=== PATIENT | male | born 1935 | race Caucasian/White ===

== ENCOUNTER 2018-01-02 13:57 | Inpatient (IN) | payer MEDICARE, OTHER, MEDICAID ==
[~2018-01-02] VITALS: Ht 170.2 cm; Wt 92.5 kg
--- NOTE | ~2018-01-02 | EC ---
PATIENT:FORREST BROWN DATE OF SERVICE: 01/03/18 SEX: M MEDICAL RECORD: [id number] DATE OF : 37 LOCATION:D.MS [facility] AGE OF PATIENT: 82 ADMISSION DATE: 01/03/18 REFERRING PHYSICIAN: INTERPRETING PHYSICIAN: CYNTHIA THAPA MD ECHOCARDIOGRAM REPORT ECHO CHARGES 4 ECHO COMPLETE CLINICAL DIAGNOSIS: SOB ECHOCARDIOGRAPHIC MEASUREMENTS (adult normal given) AC root (d.<3.7cm) 2.6 cm LV Septum d (<1.2 cm> 1.5 cm Valve Excursion 0.9 cm LV Septum (systole) 1.7 cm Left Atria (s.<4.0cm> 3.5 cm LVPW d(<1.2cm) 1.6 cm RV (d.<2.3cm) 4.0 cm LVPW (sytole) 1.9 cm LV diastole(<5.6CM) 5.0 cm MV E-F(>70mm/sec) cm LV systole 3.3 cm LVOT Diameter 1.6 cm MV exc.(>10mm) 1.0 cm Est.ejection fraction (50-75%) % Pericardial Effusion N DOPPLER: LVIT cm/sec A 138 cm/sec E 116 cm/sec LA cm/sec RVSP 21 mmHg LVOT 122 cm/sec AOP1/2T m/s Asc. Ao 272 cm/sec RVOT 131 cm/sec RA cm/sec PA 196 cm/sec AV Gradient Peak 29.70mmHg AV Mean 16.17mmHg AV Area 1.0 cm MV Gradient Peak 13.79mmHg MV Mean 7.18 mmHg MV Area cm COMMENTS: Proposal Manager: 2 KERRI ARROYO Water Tester: 3 Dr. Santillan TAPE# PACS DATE OF SERVICE: 01/03/2018 Adequate 2D echo, color flow, spectral Doppler, and M-mode. LVH is present. LV internal dimensions are normal. Wall motion is normal. EF is greater than 55%. Prosthetic aortic valve was noted with elevated velocities of 30 mmHg. Left atrium is normal at 3.5 cm. Mitral valve shows no prolapse. Trace MR. Right-sided chamber grossly normal. Mild TR. TRANSINT:[id number] Voice Confirmation ID: [id number] DOCUMENT ID: [id number] ECHOCARDIOGRAM REPORT [id number] FORREST BROWN 01/11/2018 Edited to correct date of service, dmm. CYNTHIA THAPA MD at 1030 CC: [id number] DICTATION DATE: 01/04/18 1307 TACK PICKER: 01/04/18 1332 DIS IN 01/06/18 [place] [id number] [place] [id number]
[2018-01-02 14:51] LABS: BASOPHILS 0.2 % (0-2); EOSINOPHILS 1.6 % (0-7); HEMATOCRIT 41.3 % (42.0-54.0); IMMATURE GRANULOCYTES 0.2 % (0-5); LYMPHOCYTES 13.2 % (15-50); MCH 32.1 pg (26.0-34.0); MCHC 31.5 g/dL (31.0-37.0); MEAN PLATELET VOLUME 10.2 fL (7.4-10.4); MONOCYTES 6.9 % (2-11); NEUTROPHILS 77.9 % (40-80); PLATELET COUNT 158 10x3/uL (130-400); RBC 4.05 10x6/uL (4.20-6.10); RDW 15.2 % (11.5-14.5); WBC 9.5 10x3/uL (4.8-10.8)
[2018-01-02 15:07] LABS: APTT 30.9 SECONDS (22.8-39.4); INR 1.15 (0.85-1.17); PROTIME 14.3 SECONDS (11.6-15.0)
[2018-01-02 15:09] LABS: D-DIMER-QUANTITATIVE < 0.27 ug/mLFEU (0.20-0.54)
[2018-01-02 15:11] LABS: ALBUMIN 3.8 g/dL (3.4-5.0); ALKALINE PHOSPHATASE 121 U/L (46-116); ALT (SGPT) 73 U/L (10-68); BILIRUBIN - TOTAL 0.44 mg/dL (0.2-1.3); CALC OSMOLALITY 289 mosm/kg (275-300); CALCIUM 9.8 mg/dL (8.5-10.1); CARBON DIOXIDE 34.8 mmol/L (21.0-32.0); CHLORIDE - SERUM 101 mmol/L (98-107); CREATININE - SERUM 1.3 mg/dL (0.6-1.3); GLUCOSE 101 mg/dL (74-106); POTASSIUM - SERUM 4.3 mmol/L (3.5-5.1); PROTEIN - SERUM 8.4 g/dL (6.4-8.2); SODIUM 144 mmol/L (136-145); UREA NITROGEN 21 mg/dL (7-18); eGFR NON AFRICAN AMERICAN 56 mL/min (90-120)
[2018-01-02 15:19] LABS: CKMB 2.9 U/L (0.0-3.6); CREATINE KINASE 161 UL (21-232); PRO BNP 90 pg/mL (0-450)
[2018-01-02 15:20] LABS: TROPONIN-I < 0.017 ng/mL (0.000-0.060)
[2018-01-02] MEDS ORDERED: ACETAMINOPHEN325 MG PO (20:14)
[2018-01-02] MEDS ORDERED: PROAIR HFA8.5 GM INH (20:18)
[2018-01-02] MEDS ORDERED: ZYLOPRIM100 MG PO (20:18)
[2018-01-02] MEDS ORDERED: CORDARONE200 MG PO (20:19)
[2018-01-02] MEDS ORDERED: ELIQUIS5 MG PO (20:19)
[2018-01-02] MEDS ORDERED: CARVEDILOL (20:21)
[2018-01-02] MEDS ORDERED: PLAVIX75 MG PO (20:30)
[2018-01-02] MEDS ORDERED: FLUTICASONE PRO16 GM NASAL (20:32)
[2018-01-02] MEDS ORDERED: FERROUS SULFAT325 MG PO (20:32)
[2018-01-02] MEDS ORDERED: LASIX40 MG PO (20:34)
[2018-01-02] MEDS ORDERED: HYDROCODON-ACE1 EAC7 PO (20:35)
[2018-01-02] MEDS ORDERED: IPRAT-ALBUT 0.5-3 ML UPD (20:36)
[2018-01-02] MEDS ORDERED: PROTONIX40 MG PO (20:39)
[2018-01-02] MEDS ORDERED: PRAVACHOL40 MG PO (20:41)
[2018-01-02] MEDS ORDERED: K-DUR20 MEQ PO (20:41)
[2018-01-02] MEDS ORDERED: FLOMAX0.4 MG PO (20:42)
[2018-01-02] MEDS ORDERED: SYMBICORT 16010.2 GM INH (20:42)
[2018-01-03] VITALS (7 sets, daily range): BP systolic 130–178; BP diastolic 49–80; BMI 32.0
[2018-01-03 05:00] LABS: BASOPHILS 0.1 % (0-2); EOSINOPHILS 0 % (0-7); HEMATOCRIT 39.2 % (42.0-54.0); HEMOGLOBIN 12.3 g/dL (13.5-17.5); IMMATURE GRANULOCYTES 0.2 % (0-5); LYMPHOCYTES 9.1 % (15-50); MCH 31.7 pg (26.0-34.0); MCHC 31.4 g/dL (31.0-37.0); MEAN PLATELET VOLUME 9.8 fL (7.4-10.4); MONOCYTES 0.4 % (2-11); NEUTROPHILS 90.2 % (40-80); PLATELET COUNT 162 10x3/uL (130-400); RBC 3.88 10x6/uL (4.20-6.10); RDW 15.4 % (11.5-14.5); WBC 8.4 10x3/uL (4.8-10.8)
[2018-01-03 05:41] LABS: ALBUMIN 3.1 g/dL (3.4-5.0); ANION GAP 16.6 mmol/L (8-16); BILIRUBIN - TOTAL 0.3 mg/dL (0.2-1.3); CALCIUM 8.7 mg/dL (8.5-10.1); CARBON DIOXIDE 26.8 mmol/L (21.0-32.0); CREATININE - SERUM 1.6 mg/dL (0.6-1.3); POTASSIUM - SERUM 4.4 mmol/L (3.5-5.1); PROTEIN - SERUM 7.7 g/dL (6.4-8.2)
[2018-01-04 01:02] VITALS: BP 152/67
[2018-01-04 06:05] LABS: BASOPHILS 0 % (0-2); EOSINOPHILS 0 % (0-7); HEMATOCRIT 37.1 % (42.0-54.0); HEMOGLOBIN 11.7 g/dL (13.5-17.5); IMMATURE GRANULOCYTES 0.2 % (0-5); LYMPHOCYTES 5.9 % (15-50); MCH 31.5 pg (26.0-34.0); MCHC 31.5 g/dL (31.0-37.0); MEAN PLATELET VOLUME 10.2 fL (7.4-10.4); MONOCYTES 2.7 % (2-11); NEUTROPHILS 91.2 % (40-80); PLATELET COUNT 155 10x3/uL (130-400); RBC 3.71 10x6/uL (4.20-6.10); RDW 15.6 % (11.5-14.5)
[2018-01-04 06:09] VITALS: BP 133/69
[2018-01-04 06:09] LABS: WBC 13.1 10x3/uL (4.8-10.8)
[2018-01-04 06:27] LABS: ANION GAP 13.8 mmol/L (8-16); CALCIUM 8.6 mg/dL (8.5-10.1); CARBON DIOXIDE 28.1 mmol/L (21.0-32.0); CREATININE - SERUM 1.4 mg/dL (0.6-1.3); POTASSIUM - SERUM 4.9 mmol/L (3.5-5.1)
[2018-01-04 08:26] VITALS: BP 150/58
[2018-01-04 13:26] VITALS: Ht 170.2 cm; Wt 92.5 kg
[2018-01-04 13:42] VITALS: BP 137/50
[2018-01-04 16:40] VITALS: BP 144/57
[2018-01-04 23:40] VITALS: BP 148/58
[2018-01-05 05:22] LABS: BASOPHILS 0 % (0-2); EOSINOPHILS 0 % (0-7); HEMATOCRIT 35.1 % (42.0-54.0); HEMOGLOBIN 11.1 g/dL (13.5-17.5); IMMATURE GRANULOCYTES 0.3 % (0-5); LYMPHOCYTES 8.8 % (15-50); MCH 31.6 pg (26.0-34.0); MCHC 31.6 g/dL (31.0-37.0); MEAN PLATELET VOLUME 10.2 fL (7.4-10.4); MONOCYTES 7.4 % (2-11); NEUTROPHILS 83.5 % (40-80); PLATELET COUNT 148 10x3/uL (130-400); RBC 3.51 10x6/uL (4.20-6.10); RDW 15.8 % (11.5-14.5); WBC 10.7 10x3/uL (4.8-10.8)
[2018-01-05 05:46] LABS: ANION GAP 11.2 mmol/L (8-16); CALCIUM 8.3 mg/dL (8.5-10.1); CREATININE - SERUM 1.2 mg/dL (0.6-1.3); POTASSIUM - SERUM 4.2 mmol/L (3.5-5.1)
[2018-01-05 06:13] VITALS: BP 122/50
[2018-01-05 08:33] VITALS: BP 136/64
[2018-01-05 23:07] VITALS: BP 142/63
[2018-01-06 05:23] VITALS: BP 148/64
[2018-01-06 06:45] LABS: BASOPHILS 0 % (0-2); EOSINOPHILS 0 % (0-7); HEMATOCRIT 37.9 % (42.0-54.0); HEMOGLOBIN 11.9 g/dL (13.5-17.5); IMMATURE GRANULOCYTES 0.5 % (0-5); LYMPHOCYTES 10.5 % (15-50); MCH 31.6 pg (26.0-34.0); MCHC 31.4 g/dL (31.0-37.0); MCV 100.8 fL (80.0-100.0); MEAN PLATELET VOLUME 10.3 fL (7.4-10.4); MONOCYTES 5.6 % (2-11); NEUTROPHILS 83.4 % (40-80); PLATELET COUNT 144 10x3/uL (130-400); RBC 3.76 10x6/uL (4.20-6.10); RDW 15.8 % (11.5-14.5); WBC 8.4 10x3/uL (4.8-10.8)
[2018-01-06 07:02] LABS: ANION GAP 9.2 mmol/L (8-16); CALCIUM 9.3 mg/dL (8.5-10.1); CARBON DIOXIDE 33.3 mmol/L (21.0-32.0); CREATININE - SERUM 1.2 mg/dL (0.6-1.3); POTASSIUM - SERUM 4.5 mmol/L (3.5-5.1)
[2018-01-06 08:05] VITALS: BP 176/74
[2018-01-06] MEDS ORDERED: SINGULAIR10 MG PO (11:03)
[2018-01-06] MEDS ORDERED: MUCINEX DM ER1 EAC1 PO (11:03)
[2018-01-06] MEDS ORDERED: BENZONATATE200 MG PO (11:03)
[2018-01-06] MEDS ORDERED: DALIRESP500 MCG PO (11:03)
[2018-01-06] MEDS ORDERED: PULMICORT0.5 MG/21 UPD (11:03)
[2018-01-06] MEDS ORDERED: FLORAJEN3 CAPS460 MG PO (11:04)
[2018-01-06] MEDS ORDERED: ZITHROMAX TRI-500 MG PO (11:04)
[2018-01-06] MEDS ORDERED: PREDNISONE10 MG PO (11:05)
[2018-01-06] MEDS ORDERED: OMNICEF300 MG PO (11:05)
[2018-02-22 13:13] LABS: IMMUNOGLOBULIN A 1325; IMMUNOGLOBULIN G 516
[2018-02-22 13:14] LABS: IMMUNOGLOBULIN E 11
== END 2018-01-06 12:08 | disposition home or self-care (01) | DRG 193 ==
LOC: D.ER 13:57 → OBSVTIME 17:39 → D.MS 17:39 → D.SDCHOLD 01-04 11:55 → D.MS 01-06 12:08
PROVIDERS: Family Medicine; Internal Medicine Nephrology; Internal Medicine Pulmonary Disease
DX: J18.9 Pneumonia, unspecified organism (principal); J96.21 Acute and chronic respiratory failure with hypoxia; J96.22 Acute and chronic respiratory failure with hypercapnia; J44.0 Chronic obstructive pulmonary disease with (acute) lower respiratory infection; N17.9 Acute kidney failure, unspecified; J44.1 Chronic obstructive pulmonary disease with (acute) exacerbation; J20.9 Acute bronchitis, unspecified; G47.33 Obstructive sleep apnea (adult) (pediatric); M10.9 Gout, unspecified; K21.9 Gastro-esophageal reflux disease without esophagitis; I12.9 Hypertensive chronic kidney disease with stage 1 through stage 4 chronic kidney disease, or unspecified chronic kidney disease; N18.9 Chronic kidney disease, unspecified; Z99.81 Dependence on supplemental oxygen; I48.91 Unspecified atrial fibrillation; R13.11 Dysphagia, oral phase; Z87.891 Personal history of nicotine dependence; D75.89 Other specified diseases of blood and blood-forming organs

== ENCOUNTER 2019-09-15 17:48 | Inpatient (IN) | payer MEDICARE, OTHER ==
[~2019-09-15] VITALS: Ht 170.2 cm; Wt 83.0 kg
[~2019-09-15 17:48] MED LIST: ACETAMINOPHEN325 MG PO; BENZONATATE200 MG PO; CARVEDILOL; CORDARONE200 MG PO; DALIRESP500 MCG PO; ELIQUIS5 MG PO; FERROUS SULFAT325 MG PO; FLOMAX0.4 MG PO; FLORAJEN3 CAPS460 MG PO; FLUTICASONE PRO16 GM NASAL; HYDROCODON-ACE1 EAC7 PO; IPRAT-ALBUT 0.5-3 ML UPD; K-DUR20 MEQ PO; LASIX40 MG PO; MUCINEX DM ER1 EAC1 PO; OMNICEF300 MG PO; PLAVIX75 MG PO; PRAVACHOL40 MG PO; PREDNISONE10 MG PO; PROAIR HFA8.5 GM INH; PROTONIX40 MG PO; PULMICORT0.5 MG/21 UPD; SINGULAIR10 MG PO; SYMBICORT 16010.2 GM INH; ZITHROMAX TRI-500 MG PO; ZYLOPRIM100 MG PO
[2019-09-15 19:01] LABS: BASOPHILS 0.6 % (0-2); EOSINOPHILS 5.9 % (0-7); HEMATOCRIT 38.1 % (42.0-54.0); HEMOGLOBIN 11.7 g/dL (13.5-17.5); IMMATURE GRANULOCYTES 0.1 % (0-5); LYMPHOCYTES 19.8 % (15-50); MCH 30.5 pg (26.0-34.0); MCHC 30.7 g/dL (31.0-37.0); MCV 99.2 fL (80.0-100.0); MEAN PLATELET VOLUME 10.1 fL (7.4-10.4); MONOCYTES 7.5 % (2-11); NEUTROPHILS 66.1 % (40-80); PLATELET COUNT 166 10x3/uL (130-400); RBC 3.84 10x6/uL (4.20-6.10); RDW 17.1 % (11.5-14.5); WBC 7.2 10x3/uL (4.8-10.8)
[2019-09-15 19:03] LABS: CALC OSMOLALITY 289 mosm/kg (275-300); CALCIUM 9.2 mg/dL (8.5-10.1); CARBON DIOXIDE 32.9 mmol/L (21.0-32.0); CHLORIDE - SERUM 104 mmol/L (98-107); CREATININE - SERUM 1.5 mg/dL (0.6-1.3); GLUCOSE 122 mg/dL (74-106); POTASSIUM - SERUM 4.4 mmol/L (3.5-5.1); SODIUM 144 mmol/L (136-145); UREA NITROGEN 17 mg/dL (7-18); eGFR NON AFRICAN AMERICAN 47 mL/min (90-120)
[2019-09-15 19:04] LABS: INR 1.22 (0.85-1.17); PROTIME 14.9 SECONDS (11.6-15.0)
[2019-09-15 19:05] LABS: APTT 33.9 SECONDS (22.8-39.4)
--- NOTE | 2019-09-15 19:25 | NUR ---
ASSUMED CARE OF PATIENT, RESTING QUIETLY AT THIS TIME, DENIES PAIN AT THIS TIME, FAMILY AT BEDSIDE.
[2019-09-15 19:28] LABS: MAGNESIUM - SERUM 1.6 mg/dL (1.8-2.4)
[2019-09-15 19:29] VITALS: BP 112/48
[2019-09-15 19:29] LABS: ALKALINE PHOSPHATASE 124 U/L (46-116); ALT (SGPT) 26 U/L (10-68); BILIRUBIN - TOTAL 0.21 mg/dL (0.2-1.3); CKMB 1.8 U/L (0.0-3.6); CREATINE KINASE 142 UL (21-232); PROTEIN - SERUM 7.2 g/dL (6.4-8.2); TROPONIN-I 0.013 ng/mL (0.000-0.060)
[2019-09-15 20:30] VITALS: BP 129/52
--- NOTE | 2019-09-15 21:00 | NUR ---
PATIENT HAS INDWELLING BOWERS X 1 MONTH, CHANGED LEG BAG TO A REGULAR BAG, URINE IS CLEAR YELLOW.
[2019-09-15 21:21] LABS: CKMB 1.9 U/L (0.0-3.6); CREATINE KINASE 137 UL (21-232)
[2019-09-15 21:24] LABS: TROPONIN-I < 0.017 ng/mL (0.000-0.060)
--- NOTE | 2019-09-15 22:15 | NUR ---
PATIENT ARRIVED FROM ER VIA STRETCHER. PATIENT IS ALERT AND ORIENTED, TRANSFERED TO BED WITH MINIMIAL ASSISTANCE. PATIENT ON 2L NC. PATIENT HAS A CHRONIC BOWERS D/T PROSTATE ISSUES. NO S/S OF DISTRESS. NO C/O PAIN. CALL LIGHT WITHIN REACH. WILL CPOC.
[2019-09-15] MEDS ORDERED: COREG 3.1253.125 MG PO (22:25)
[2019-09-15] MEDS ORDERED: SYNTHROID50 MCG PO (22:37)
[2019-09-15] MEDS ORDERED: GLUCOPHAGE500 MG PO (22:38)
[2019-09-15] MEDS ORDERED: ZOFRAN4 MG PO (22:39)
[2019-09-15 22:55] LABS: APPEARANCE CLEAR (CLEAR); COLOR STRAW (YELLOW); SPECIFIC GRAVITY 1.015 (1.005-1.020)
[2019-09-15 22:56] LABS: BILIRUBIN NEGATIVE (NEGATIVE); GLUCOSE NEGATIVE (NEGATIVE); KETONE NEGATIVE (NEGATIVE); NITRITE NEGATIVE (NEGATIVE); PROTEIN NEGATIVE (NEGATIVE); UROBILINOGEN NORMAL (NORMAL)
[2019-09-15 23:00] LABS: BACTERIA FEW /hpf (NEGATIVE); EPITHELIAL CELLS NSEEN /hpf (0-5); RED CELLS - URINE 0-5 /hpf (0-5); WHITE CELLS - URINE 0-5 /hpf (NEGATIVE)
[2019-09-15 23:01] LABS: YEAST >1+ WITH HYPHAE /hpf (NONE SEEN)
[2019-09-15 23:08] VITALS: BP 120/50; BMI 31.4
[2019-09-16 01:56] LABS: BASOPHILS 0.6 % (0-2); EOSINOPHILS 6.2 % (0-7); HEMATOCRIT 35.3 % (42.0-54.0); HEMOGLOBIN 10.7 g/dL (13.5-17.5); IMMATURE GRANULOCYTES 0.3 % (0-5); LYMPHOCYTES 22.4 % (15-50); MCH 30.2 pg (26.0-34.0); MCHC 30.3 g/dL (31.0-37.0); MCV 99.7 fL (80.0-100.0); MEAN PLATELET VOLUME 9.8 fL (7.4-10.4); MONOCYTES 8.6 % (2-11); NEUTROPHILS 61.9 % (40-80); PLATELET COUNT 148 10x3/uL (130-400); RBC 3.54 10x6/uL (4.20-6.10); RDW 16.8 % (11.5-14.5)
--- NOTE | 2019-09-16 02:13 | NUR ---
PATIENT GIVEN MORPHINE FOR PAIN. CALL LIGHT WITHIN REACH. WILL CPOC.
[2019-09-16 02:18] LABS: ALBUMIN 2.7 g/dL (3.4-5.0); ALKALINE PHOSPHATASE 102 U/L (46-116); ALT (SGPT) 22 U/L (10-68); BILIRUBIN - TOTAL 0.19 mg/dL (0.2-1.3); CALC OSMOLALITY 286 mosm/kg (275-300); CALCIUM 8.7 mg/dL (8.5-10.1); CARBON DIOXIDE 34.2 mmol/L (21.0-32.0); CHLORIDE - SERUM 105 mmol/L (98-107); CKMB 1.6 U/L (0.0-3.6); CREATINE KINASE 111 UL (21-232); CREATININE - SERUM 1.5 mg/dL (0.6-1.3); GLUCOSE 125 mg/dL (74-106); MAGNESIUM - SERUM 1.6 mg/dL (1.8-2.4); PHOSPHOROUS 3.5 mg/dL (2.5-4.9); POTASSIUM - SERUM 4.2 mmol/L (3.5-5.1); PROTEIN - SERUM 6.2 g/dL (6.4-8.2); SODIUM 143 mmol/L (136-145); TROPONIN-I < 0.017 ng/mL (0.000-0.060); UREA NITROGEN 16 mg/dL (7-18); eGFR NON AFRICAN AMERICAN 47 mL/min (90-120)
[2019-09-16 02:18] LABS: THYROID STIMULATING HORMONE 2.44 uIU/mL (0.36-3.74)
--- NOTE | 2019-09-16 04:23 | NUR ---
PATIENT COMPLAINING OF PAIN. MORPHINE ORDERED Q 4H. MORHINE NOT AVAILABLE FOR ADMINISTERATION UNTIL 0600. PAGED LELAND URIAS COMPUTER FORENSICS EXAMINER. ORDERS GIVEN FOR FLEXERIL 10 MG TID AND MORPHINE 2MG Q4H PRN. ALSO AND US OF GALLBLADDER FOR RIGHT UPPER QUADRANT PAIN.
[2019-09-16 04:45] VITALS: BP 126/53
[2019-09-16 08:00] VITALS: BP 176/60
[2019-09-16 09:23] VITALS: Ht 170.2 cm; Wt 83.0 kg
--- NOTE | 2019-09-16 09:41 | CN ---
PATIENT NAME:FORREST BROWN MEDICAL RECORD: [id number] : 37 LOCATION:D. D.2116 ADMIT DATE: 09/15/19 ACCOUNT: [id number] CONSULTING PHYSICIAN: BETTYE JAIME MD REFERRING PHYSICIAN: ESTRELLA PAEZ MD DATE OF CONSULTATION: 09/16/2019 CARDIOLOGY CONSULTATION DIAGNOSES: 1. Chest pain, atypical. 2. Coronary artery disease. 3. Previous PTCA stent. 4. Atrial fibrillation, chronic. 5. Aortic valve replacement tissue prosthesis. 6. COPD. 7. Shortness of breath, dyspnea on exertion. 8. GERD. HISTORY OF PRESENT ILLNESS: Mr. Brown presents with shortness of breath, cough, acid reflux symptomatology, and abdominal pain. No real chest pain. The pain is on his upper quadrants of his abdomen. It is very sharp, going from one side to the other is definitely positional. He has no dull aching anginal pain, does have a history of stents. He does not remember the pain he had prior to the stenting procedures. EKG is with no ST-T abnormalities. His troponin is normal. PHYSICAL EXAMINATION: CONSTITUTIONAL/GENERAL APPEARANCE: Well nourished, well developed, appears stated age. EYES: Lids and conjunctivae noninjected. No discharge. No pallor. ENT: Lips within normal limit. No cyanosis. No pallor. NECK: Carotid arteries, bilateral normal upstroke. No bruits. No thrills. No jugular venous pressure or distention. CERVICAL LYMPH NODES: Nontender. Nonenlarged. THYROID: Not enlarged. No nodules. CARDIOVASCULAR: Heart is irregularly irregular. RESPIRATORY: Respiratory effort, unlabored. Normal curvature. No thoracic deformity. No chest wall tenderness. Percussion, resonant. Auscultation, clear. No wheezes, no rales, no rhonchi. ABDOMEN: Soft, nondistended, nontender. No abdominal pain, no vomiting and normal appetite. MUSCULOSKELETAL: No joint tenderness, normal gait, normal tone. SKIN: Warm and dry. OVERALL IMPRESSION: Chest pain. This is not cardiac in nature. He seems to be stable from the standpoint of ischemic heart disease. Heart rate is under good control in the 70s and systolic blood pressure is under good control in the 120s. We will get an echocardiogram to evaluate the valvular prosthesis. Otherwise, no other cardiac workup or treatment is necessary. TRANSINT:[id number] Voice Confirmation ID: [id number] DOCUMENT ID: [id number] CONSULT REPORT [id number] FORREST BROWN, BETTYE SIMPSON at 0941 CC: [id number] DICTATION DATE: 09/16/19921 PRODUCTION ILLUSTRATOR: 09/16/19 09 ADM IN [place] [id number] [place] [address]
[2019-09-16 10:09] LABS: CKMB 1.7 U/L (0.0-3.6); CREATINE KINASE 100 UL (21-232); TROPONIN-I < 0.017 ng/mL (0.000-0.060)
[2019-09-16 10:55] VITALS: BP 107/55
[2019-09-16 15:14] VITALS: BP 136/53
[2019-09-16 20:30] VITALS: BP 112/44
[2019-09-17 00:15] VITALS: BP 148/54
[2019-09-17 04:18] VITALS: BP 101/37
[2019-09-17 05:27] LABS: BASOPHILS 0.3 % (0-2); EOSINOPHILS 4.2 % (0-7); HEMATOCRIT 37.6 % (42.0-54.0); HEMOGLOBIN 11.3 g/dL (13.5-17.5); IMMATURE GRANULOCYTES 0.1 % (0-5); LYMPHOCYTES 17.9 % (15-50); MCH 30.5 pg (26.0-34.0); MCHC 30.1 g/dL (31.0-37.0); MCV 101.6 fL (80.0-100.0); MEAN PLATELET VOLUME 9.9 fL (7.4-10.4); MONOCYTES 7.4 % (2-11); NEUTROPHILS 70.1 % (40-80); PLATELET COUNT 154 10x3/uL (130-400); RDW 17.1 % (11.5-14.5); WBC 7.6 10x3/uL (4.8-10.8)
[2019-09-17 05:58] LABS: ANION GAP 8.4 mmol/L (8-16); CALCIUM 9.1 mg/dL (8.5-10.1); CARBON DIOXIDE 34.1 mmol/L (21.0-32.0); CREATININE - SERUM 1.3 mg/dL (0.6-1.3); MAGNESIUM - SERUM 1.8 mg/dL (1.8-2.4); POTASSIUM - SERUM 4.5 mmol/L (3.5-5.1)
--- NOTE | 2019-09-17 07:15 | NUR ---
RECEIVED PT IN BED EYES CLOSED RESP UNLABORED SKIN W/D NAD NOTED AT THIS TIME
[2019-09-17 09:10] VITALS: BP 109/40
[2019-09-17 12:00] VITALS: BP 121/49; BP 132/44
[2019-09-17 16:00] VITALS: BP 123/49
[2019-09-17 20:30] VITALS: BP 121/50
--- NOTE | 2019-09-17 20:33 | NUR ---
C/O GENERALIZED PAIN. DILAUDID GIVEN PER ORDERS.
--- NOTE | 2019-09-18 01:22 | NUR ---
C/O BACK PAIN AND REQUESTED PAIN MEDICATION. MED GIVEN PER ORDERS WITH SSTATED RELIEF.
--- NOTE | 2019-09-18 03:29 | NUR ---
REPOSITIONED. EASILY AROUSES WITH VERBAL STIMULI. RESTING BETTER TONIGHT.
[2019-09-18 05:28] LABS: BASOPHILS 0.3 % (0-2); EOSINOPHILS 4.9 % (0-7); HEMATOCRIT 35.7 % (42.0-54.0); HEMOGLOBIN 10.8 g/dL (13.5-17.5); IMMATURE GRANULOCYTES 0.3 % (0-5); LYMPHOCYTES 24.4 % (15-50); MCH 30.9 pg (26.0-34.0); MCHC 30.3 g/dL (31.0-37.0); MEAN PLATELET VOLUME 10.5 fL (7.4-10.4); MONOCYTES 7.8 % (2-11); NEUTROPHILS 62.3 % (40-80); PLATELET COUNT 146 10x3/uL (130-400); RDW 17.2 % (11.5-14.5); WBC 6.9 10x3/uL (4.8-10.8)
[2019-09-18 05:52] LABS: ANION GAP 5.3 mmol/L (8-16); CARBON DIOXIDE 36.9 mmol/L (21.0-32.0); CREATININE - SERUM 1.2 mg/dL (0.6-1.3); MAGNESIUM - SERUM 1.7 mg/dL (1.8-2.4); POTASSIUM - SERUM 4.2 mmol/L (3.5-5.1)
--- NOTE | 2019-09-18 07:15 | NUR ---
RECEIVED PT IN BED EYES CLOSED TRILOGY INTACT AND PATENT RESP UNLABORED SKIN W/D NAD NOTED WILL CONTINUE TO MONITOR
[2019-09-18 09:14] VITALS: BP 116/44
[2019-09-18 12:47] VITALS: BP 112/41
[2019-09-18 13:23] LABS: % SATURATION 10 % (15-55); IRON 22 ug/dl (35-150); TOTAL IRON BIND CAPACITY 217 ug/dl (260-445); UNSAT IRON BIND CAPACITY 195 ug/dl (150-375)
[2019-09-18 18:21] VITALS: BP 137/58
[2019-09-18 20:00] VITALS: BP 126/54
--- NOTE | 2019-09-18 20:02 | NUR ---
RECIEVED BED SIDE SHIFT REPORT. ALERT AND ORIETNED X4. UP WITH EXTENSIVE ASSIST. BM THIS SHIFT. USES BEDSIDE COMMODE. F/C INTACT WITH STRAW COLOR URINE DRAING TO BEDSIDE DRANAGE BAG. BRUISING AND SCABS TO BILATERAL ARMS AND HANDS. DSG TO LEFT ELBOW D/T SCABED AREA OPENENING PER OFF GOING REPORT. O2 AT 3 LITERS PER N/C. LUNG SOUNDS DIMINISHED. BSX4Q. GENERALIZED EDEMA TO ALL EXTREMITIES. DENIES ANY NEEDS AT THIS TIME.
--- NOTE | 2019-09-18 21:58 | NUR ---
C/O PAIN AT 9 GENERALIZED. ESPECIALLY TO BACK AND RIB AREA. MEDS GIVEN PER ORDERS.
[2019-09-19] VITALS: BP 134/53
[2019-09-19 04:00] VITALS: BP 117/54
[2019-09-19 05:26] LABS: BASOPHILS 0.1 % (0-2); EOSINOPHILS 4.5 % (0-7); HEMATOCRIT 35.3 % (42.0-54.0); HEMOGLOBIN 10.4 g/dL (13.5-17.5); IMMATURE GRANULOCYTES 0.3 % (0-5); LYMPHOCYTES 23.8 % (15-50); MCH 29.9 pg (26.0-34.0); MCHC 29.5 g/dL (31.0-37.0); MCV 101.4 fL (80.0-100.0); MEAN PLATELET VOLUME 9.6 fL (7.4-10.4); MONOCYTES 9.5 % (2-11); NEUTROPHILS 61.8 % (40-80); PLATELET COUNT 156 10x3/uL (130-400); RBC 3.48 10x6/uL (4.20-6.10); RDW 17.2 % (11.5-14.5); WBC 6.9 10x3/uL (4.8-10.8)
[2019-09-19 05:49] LABS: ANION GAP 7.2 mmol/L (8-16); CALCIUM 8.8 mg/dL (8.5-10.1); CREATININE - SERUM 1.2 mg/dL (0.6-1.3); MAGNESIUM - SERUM 1.7 mg/dL (1.8-2.4); POTASSIUM - SERUM 4.2 mmol/L (3.5-5.1)
[2019-09-19 07:38] VITALS: BP 141/64
--- NOTE | 2019-09-19 09:28 | EC ---
PATIENT:FORREST BROWN DATE OF SERVICE: 09/16/19 SEX: M MEDICAL RECORD: [id number] DATE OF : 36 LOCATION:D.M2 D.211 AGE OF PATIENT: 84 ADMISSION DATE: 09/16/19 REFERRING PHYSICIAN: INTERPRETING PHYSICIAN: BETTYE WORTHINGTON MD ECHOCARDIOGRAM REPORT ECHO CHARGES 4 ECHO COMPLETE Date: 09/16/19 CLINICAL DIAGNOSIS: AVR ECHOCARDIOGRAPHIC MEASUREMENTS (adult normal given) AC root (d.<3.7cm) 2.3 cm LV Septum d (<1.2 cm> 1.5 cm Valve Excursion 1.5 cm LV Septum (systole) 1.6 cm Left Atria (s.<4.0cm> 4.0 cm LVPW d(<1.2cm) 1.4 cm RV (d.<2.3cm) 3.3 cm LVPW (sytole) 1.6 cm LV diastole(<5.6CM) 4.6 cm MV E-F(>70mm/sec) cm LV systole 3.2 cm LVOT Diameter 1.6 cm MV exc.(>10mm) 1.4 cm Est.ejection fraction (50-75%) % DOPPLER: LVIT cm/sec A 117.0cm/sec E 92.0 cm/sec LA cm/sec RVSP 25 mmHg LVOT 131 cm/sec AOP1/2T m/s Asc. Ao 233 cm/sec RVOT 111 cm/sec RA cm/sec PA 140 cm/sec AV Gradient Peak 21.68mmHg AV Mean 12.97mmHg AV Area 1.1 cm MV Gradient Peak 8.93 mmHg MV Mean 3.99 mmHg MV Area cm COMMENTS: Systems Test Analyst: 2 KERRI ARROYO Whiting Can Worker: 1 Dr. Worthington TAPE# PACS Pericardial Effusion N DATE OF SERVICE: FINDINGS: 1. Left ventricular chamber size is within normal limits. Left ventricular systolic function is normal. Overall ejection fraction estimated at 55%. 2. Left atrium is enlarged at 4.0 cm. Right atrium and right ventricular chamber sizes are within normal limits. 3. Valvular structures: Aortic valve is replaced with a tissue prosthesis with normal structure and function in this position. 4. Doppler interrogation reveals mild aortic stenosis with a valve area ECHOCARDIOGRAM REPORT [id number] FORREST BROWN calculated at 1.1 cm-squared and a gradient of 22 mm across the valve and trace tricuspid regurgitation. No other valvular insufficiency or stenosis. 5. No evidence of pericardial effusion or left ventricular thrombus. TRANSINT:[id number] Voice Confirmation ID: [id number] DOCUMENT ID: [id number] BETTYE WORTHINGTON MD at 0928 CC: [id number] DICTATION DATE: 09/17/19 1103 MUSEUM INFORMATICS SPECIALIST: 09/17/19 1111 ADM IN [facility] [address] [place] [id number]
--- NOTE | 2019-09-19 09:54 | NUR ---
TELEMETRY SR. RESP UL ON 02 3L NC. UP TO CHAIR WITH PT ASSIST. WILL CONT. PLAN OF CARE.
[2019-09-19 11:24] VITALS: BP 110/48
--- NOTE | 2019-09-19 12:59 | NUR ---
PER PATIENT PERMISSION I CALLED HIS TO SEE WHEN THE BOWERS CATH WAS PLACED AND LAST CHANGED OUT. IT WAS PLACED APPROX [address] AYALA AND CHANGED 1 WEEK AGO AT [facility].
--- NOTE | 2019-09-19 13:32 | MORECARE ---
CASE MANAGEMENT DISCHARGE SUMMARY PATIENT: FORREST BROWN UNIT: [id number] ADM DATE: 09/16/19 AGE: 84 : 36 SEX: M ROOM/BED: D.2116 AUTHOR: VIRA STORY PHYSICIAN: REFERRING PHYSICIAN: ESTRELLA PAEZ MD DATE OF SERVICE: 09/19/19 Discharge Plan Patient Name: FORREST BROWN [facility] [facility] 1935 Planned Disposition: Inpatient Rehab Anticipated Discharge Date: 09/19/19 Discharge Date: Expected LOS: 3 Initial Reviewer: [email or web address] Initial Review Date: 09/15/2019 Generated: 09/19/19 2:32 pm Patient Name: FORREST BROWN Page 94105 at 1332 All edits/amendments must be made on the electronic document DICTATION DATE: 09/19/19 1332 SUPERVISOR RICE MILLING: MARISSA 09/19/19 1332 RPT#: [id number] DC DATE: STATUS: ADM IN [facility] [address] [place] [address] END OF REPORT
--- NOTE | 2019-09-19 13:40 | MORECARE ---
CASE MANAGEMENT DISCHARGE SUMMARY PATIENT: FORREST BROWN UNIT: [id number] ADM DATE: 09/16/19 AGE: 84 : 36 SEX: M ROOM/BED: D.2116 AUTHOR: VIRA STORY PHYSICIAN: REFERRING PHYSICIAN: ESTRELLA PAEZ MD DATE OF SERVICE: 09/19/19 Discharge Plan Patient Name: FORREST BROWN [facility] [facility] 1935 Planned Disposition: Inpatient Rehab Anticipated Discharge Date: 09/19/19 Discharge Date: Expected LOS: 3 Initial Reviewer: [email or web address] Initial Review Date: 09/15/2019 Generated: 09/19/19 2:39 pm DCPIA - Discharge Planning Initial Assessment Updated by [id number]: Anselmo Jensen on 09/19/19 1:38 pm * Is the patient Alert and Oriented? Yes * How many steps to enter\exit or inside your home? * PCP DR. WASSERMAN * Pharmacy [facility] [address] * Preadmission Environment Home with Family * ADLs Independent * Equipment Cane Nebulizer Oxygen Walker * Other Equipment HOME AND PORTABLE OXYGEN [facility] - OXYGEN PROVIDER * List name and contact numbers for known caregivers / representatives who currently or will assist patient after discharge: CLARA BROWN, SPOUSE, BROOKE ALVAREZ, DTR, * Verbal permission to speak to the caregivers and representatives has been obtained from the patient. Yes * Community resources currently utilized None * Please name any agencies selected above. NONE * Additional services required to return to the preadmission environment? Yes * Can the patient safely return to the preadmission environment? Yes * Has this patient been hospitalized within the prior 30 days at any hospital? No Last DP export: 09/19/19 12:32 Patient Name: FORREST BROWN Page 58667 at 1340 All edits/amendments must be made on the electronic document DICTATION DATE: 09/19/19 1339 CORPORATE DIRECTOR OF HUMAN RESOURCES: MARISSA 09/19/19 1339 RPT#: [id number] DC DATE: STATUS: ADM IN [facility] [address] [place] [address] END OF REPORT
--- NOTE | 2019-09-19 13:47 | MORECARE ---
CASE MANAGEMENT DISCHARGE SUMMARY PATIENT: FORREST BROWN UNIT: [id number] ADM DATE: 09/16/19 AGE: 84 : 36 SEX: M ROOM/BED: D.2456 AUTHOR: JEZ,DOC PHYSICIAN: REFERRING PHYSICIAN: ESTRELLA PAEZ MD DATE OF SERVICE: 09/19/19 Discharge Plan Patient Name: FORREST BROWN [facility] [facility] 1935 Planned Disposition: Inpatient Rehab Anticipated Discharge Date: 09/19/19 Discharge Date: Expected LOS: 3 Initial Reviewer: [email or web address] Initial Review Date: 09/15/2019 Generated: 09/19/19 2:47 pm Comments DCP- Discharge Planning Updated by [email or web address]: Anselmo Jensen on 09/19/19 12:[address] Patient Name: FORREST BROWN Admission Status: ER Accout number: [id number] Admission Date: 09-16-2019 : 1935 Admission Diagnosis: Attending: ESTRELLA PAEZ Current LOS: 3 Anticipated DC Date: 09-19-2019 Planned Disposition: Inpatient Rehab Primary Insurance: MEDICARE A & B PLANNED EXTERANAL PROVIDER: [facility] INPATIENT REHAB Discharge Planning Comments: CM RECEIVED ORDER FOR INPATIENT REHAB PRESCREENING. DURING MULTIDISICLINARY TEAM MEETING, [facility] OF INPATIENT REHAB INFORMED CARE TEAM THAT THERAPY WOULD NEED TO SEE AGAIN TODAY TO COMPLETE PHYSICAL THERAPY EVALUATION SO THAT THE PRESCREENING COULD BE COMPLETED TO ASSESS FOR REHAB ADMISSION. CM MET WITH PT IN ROOM TO DISCUSS DISCHARGE PLANNING AND NEEDS. PT REPORTS LIVING AT HOME INDEPENDENTLY WITH SPOUSE. PT HAS CANE, NEBULIZER, HOME AND PORTABLE OXYGEN AND WALKER FROM [facility]. PT HAS HOME HEATLH THAT CAME OUT ONCE PRIOR TO PT'S FALL AND HOSPITAL ADMISSION, PT DOES NOT REMEMBER THE NAME OF THE COMPANY. CM DISCUSSED AVAILABILITY OF HOME HEALTH, REHAB SERVICES AND MEDICAL EQUIPMENT. PT KNOWS HE NEEDS REHAB AND THINKS HE CAN PARTICIPATE MUCH THEY WOULD LIKE FOR HIM TOO. PT REPORTS RIB PAIN ON LEFT SIDE. PT WOULD LIKE REHAB AT [place], REPORTS HIS FAMILY WILL PICK HIM UP FOR DISCHARGE HOME FROM REHAB. IMPORTANT MESSAGE FROM MEDICARE PROVIDED AND EXPLAINED. CM WAITING ON PHYSICAL THERAPY EVALUATION TODAY WELL INPATIENT REHAB PRESCREENING RESULT FOR [facility] INPATIENT REHAB. Warrant Server: Anselmo Jensen DCPIA - Discharge Planning Initial Assessment Updated by [id number]: Anselmo Jensen on 09/19/19 1:38 pm * Is the patient Alert and Oriented? Yes * How many steps to enter\exit or inside your home? * PCP DR. WASSERMAN * Pharmacy [facility] [address] * Preadmission Environment Home with Family * ADLs Independent * Equipment Cane Nebulizer Oxygen Walker * Other Equipment HOME AND PORTABLE OXYGEN [facility] - OXYGEN PROVIDER * List name and contact numbers for known caregivers / representatives who currently or will assist patient after discharge: CLARA KEVIN, SPOUSE, BROOKE ALVAREZ, DTR, * Verbal permission to speak to the caregivers and representatives has been obtained from the patient. Yes * Community resources currently utilized None * Please name any agencies selected above. NONE * Additional services required to return to the preadmission environment? Yes * Can the patient safely return to the preadmission environment? Yes * Has this patient been hospitalized within the prior 30 days at any hospital? No Coverage Notice Reviewer: [id number] - Anselmo Jensen Notice Issued Date-Time: 09/19/2019 13:20 Notice Type: IM Discharge Notice Notice Delivered To: Patient Relationship to Patient: Automotive Technician Instructor Name: Delivery Method: HAND - Hand Delivered Shea Days: Prior Verbal Notification: Recipient Understood Notice: Yes Recipient Signature: Yes Med Rec Note Co-signed by Attending: Coverage Notice Comment: Last DP export: 09/19/19 12:40 Patient Name: FORREST BROWN Page 36288 at 1347 All edits/amendments must be made on the electronic document DICTATION DATE: 09/19/19 1347 AUTO GLASS TECHNICIAN: MARISSA 09/19/19 1347 RPT#: [id number] [place] DATE: STATUS: ADM IN [facility] [address] [place] [address] END OF REPORT
--- NOTE | 2019-09-19 15:27 | MORECARE ---
CASE MANAGEMENT DISCHARGE SUMMARY PATIENT: FORREST BROWN UNIT: [id number] ADM DATE: 09/16/19 AGE: 84 : 36 SEX: M ROOM/BED: D.2116 AUTHOR: VIRA STORY PHYSICIAN: REFERRING PHYSICIAN: ESTRELLA PAEZ MD DATE OF SERVICE: 09/19/19 Discharge Plan Patient Name: FORREST BROWN Facility[facility]:[place] : 1935 Planned Disposition: Inpatient Rehab Anticipated Discharge Date: 09/19/19 Discharge Date: Expected LOS: 3 Initial Reviewer: [email or web address] Initial Review Date: 09/15/2019 Generated: 09/19/19 4:27 pm Comments DCP- Discharge Planning Updated by [id number]: Anselmo Jensen on 09/19/19 2:[address] Patient Name: FORREST BROWN Encounter No: [id number] : 1935 Primary Insurance: MEDICARE A & B Anticipated DC Date: 09-19-2019 Planned Disposition: Inpatient Rehab External Planned Provider: [facility] INPATIENT REHAB DCP follow-up note: CM RECEIVED DISCHARGE ORDER. CM SPOKE TO [facility] OF INPATIENT REHAB, THEY PLAN TO ACCEPT PT TODAY FOR REHAB. PT NOTIFIED, IN AGREEMENT WITH DISCHARGE TO INPATIENT REHAB. [facility] INPATIENT REH[facility] PROVIDED ROOM NUMBER OF 1113-A AND IS READY TO ACCEPT PT AND NURSE REPORT. SALES SERVICE ROUTE MANAGER NURSE NOTIFIED. BOARDMARKER NOTIFIED. Anselmo Jensen, CASE MANAGEEMENT DCP- Discharge Planning Updated by [id number]: Anselmo Jensen on 09/19/19 12:[address] Patient Name: FORREST BROWN Admission Status: ER Accout number: [id number] Admission Date: 09-16-2019 : 1935 Admission Diagnosis: Attending: ESTRELLA PAEZ Current LOS: 3 Anticipated DC Date: 09-19-2019 Planned Disposition: Inpatient Rehab Primary Insurance: MEDICARE A & B PLANNED EXTERANAL PROVIDER: [facility] INPATIENT REHAB Discharge Planning Comments: CM RECEIVED ORDER FOR INPATIENT REHAB PRESCREENING. DURING MULTIDISICLINARY TEAM MEETING, [facility] OF INPATIENT REHAB INFORMED CARE TEAM THAT THERAPY WOULD NEED TO SEE AGAIN TODAY TO COMPLETE PHYSICAL THERAPY EVALUATION SO THAT THE PRESCREENING COULD BE COMPLETED TO ASSESS FOR REHAB ADMISSION. CM MET WITH PT IN ROOM TO DISCUSS DISCHARGE PLANNING AND NEEDS. PT REPORTS LIVING AT HOME INDEPENDENTLY WITH SPOUSE. PT HAS CANE, NEBULIZER, HOME AND PORTABLE OXYGEN AND WALKER FROM [facility] [place]. PT HAS HOME HEATLH THAT CAME OUT ONCE PRIOR TO PT'S FALL AND HOSPITAL ADMISSION, PT DOES NOT REMEMBER THE NAME OF THE COMPANY. CM DISCUSSED AVAILABILITY OF HOME HEALTH, REHAB SERVICES AND MEDICAL EQUIPMENT. PT KNOWS HE NEEDS REHAB AND THINKS HE CAN PARTICIPATE MUCH THEY WOULD LIKE FOR HIM TOO. PT REPORTS RIB PAIN ON LEFT SIDE. PT WOULD LIKE REHAB AT [place], REPORTS HIS FAMILY WILL PICK HIM UP FOR DISCHARGE HOME FROM REHAB. IMPORTANT MESSAGE FROM MEDICARE PROVIDED AND EXPLAINED. CM WAITING ON PHYSICAL THERAPY EVALUATION TODAY WELL INPATIENT REHAB PRESCREENING RESULT FOR [facility] INPATIENT REHAB. Management Engineer: Anselmo Jensen DCPIA - Discharge Planning Initial Assessment Updated by [id number]: Anselmo Jensen on 09/19/19 1:38 pm * Is the patient Alert and Oriented? Yes * How many steps to enter\exit or inside your home? * PCP DR. WASSERMAN * Pharmacy [facility] [address] * Preadmission Environment Home with Family * ADLs Independent * Equipment Cane Nebulizer Oxygen Walker * Other Equipment [facility]XYGEN [facility] * List name and contact numbers for known caregivers / representatives who currently or will assist patient after discharge: CLARA BROWN, SPOUSE, BROOKE ALVAREZ, DTR, * Verbal permission to speak to the caregivers and representatives has been obtained from the patient. Yes * Community resources currently utilized None * Please name any agencies selected above. NONE * Additional services required to return to the preadmission environment? Yes * Can the patient safely return to the preadmission environment? Yes * Has this patient been hospitalized within the prior 30 days at any hospital? No Coverage Notice Reviewer: [id number] - Anselmo Jensen Notice Issued Date-Time: 09/19/2019 13:20 Notice Type: IM Discharge Notice Notice Delivered To: Patient Relationship to Patient: Commercial Drafter Name: Delivery Method: HAND - Hand Delivered Shea Days: Prior Verbal Notification: Recipient Understood Notice: Yes Recipient Signature: Yes Med Rec Note Co-signed by Attending: Coverage Notice Comment: Last DP export: 09/19/19 12:47 Patient Name: FORREST BROWN Page [id number] at 1527 All edits/amendments must be made on the electronic document DICTATION DATE: 09/19/191526 RECHARGER: MARISSA 09/19/191526 RPT#: [id number] DC DATE: STATUS: ADM IN [facility] [address] [place] [address] END OF REPORT
--- NOTE | 2019-09-19 15:38 | NUR ---
IV AND TELEMETRY DC. DC PLANS GIVEN. REPORT CALLED TO REHAB. UNDERSTANDING VOICED. ESCORTED BY W/C.
== END 2019-09-19 15:39 | DRG 291 ==
LOC: D.ER 17:48 → D.M2 20:27 → OBSVTIME 20:27 → D.M2 20:27
PROVIDERS: Family Medicine; ADMIT Internal Medicine Nephrology; ATTEND Internal Medicine Nephrology
DX: I13.0 Hypertensive heart and chronic kidney disease with heart failure and stage 1 through stage 4 chronic kidney disease, or unspecified chronic kidney disease (principal); G92 Toxic encephalopathy; I50.31 Acute diastolic (congestive) heart failure; N17.9 Acute kidney failure, unspecified; E11.9 Type 2 diabetes mellitus without complications; J44.9 Chronic obstructive pulmonary disease, unspecified; I25.10 Atherosclerotic heart disease of native coronary artery without angina pectoris; I48.91 Unspecified atrial fibrillation; N40.0 Benign prostatic hyperplasia without lower urinary tract symptoms; K21.9 Gastro-esophageal reflux disease without esophagitis; E11.22 Type 2 diabetes mellitus with diabetic chronic kidney disease; N18.9 Chronic kidney disease, unspecified; T40.605A Adverse effect of unspecified narcotics, initial encounter; Y92.9 Unspecified place or not applicable; D63.1 Anemia in chronic kidney disease

== ENCOUNTER 2019-09-19 15:27 | Inpatient (IN) | payer MEDICARE, OTHER ==
[~2019-09-19] VITALS: Ht 170.2 cm; Wt 86.2 kg
[~2019-09-19 15:27] MED LIST changes: +COREG 3.1253.125 MG PO; +GLUCOPHAGE500 MG PO; +SYNTHROID50 MCG PO; +ZOFRAN4 MG PO
--- NOTE | 2019-09-19 15:46 | NUR ---
ADMITTED TO ROOM 1113A. APPEARS TO BE ALERT AND ORIENTED. EZIO FEET CALLOUSES - DRY AND PEELING. EZIO BRUISES ARMS. EZIO PEDAL EDEMA 2+. CL IN REACH. HAS CHRONIC BOWERS CATH.
[2019-09-19 16:16] VITALS: BP 168/90; BMI 29.8
--- NOTE | 2019-09-19 19:24 | NUR ---
PT IS RESTING IN BED WITH EYES OPEN. ALERT AND ORIENTED X 3. DENIES ACUTE PAIN AT THIS TIME. PT STATES: "I JUST CANT BREATHE HALF OF THE TIME." O2 IS ON @ 3LPM PER NC. LUNG SOUNDS ARE DIMINISHED IN ALL LOBES. BOWERS CATH IS PATENT AND DRAINING TO A GRAVITY BAG. EZIO HEELS ARE ELEVATED UP ON A PILLOW TO KEEP HEELS OFF BED. SR'S ARE UP X 2 IN BED. CALL LIGHT AND BEDSIDE TABLE ARE WITHIN EASY REACH.
[2019-09-19 21:06] VITALS: BP 128/55
--- NOTE | 2019-09-19 21:58 | NUR ---
RESTING IN BED WITH EYES OPEN. NO NEEDS VOICED.
--- NOTE | 2019-09-19 22:18 | NUR ---
I have reviewed this patient and I concur with the Shift Assessment completed by the Licensed Practical Nurse today this shift.
--- NOTE | 2019-09-20 01:53 | NUR ---
RESTING IN BED WITH EYES CLOSED.
[2019-09-20 08:00] VITALS: BP 148/56
--- NOTE | 2019-09-20 08:15 | NUR ---
PT RESTING IN BED WITH EYES OPEN CALL LIGHT IN REACH WILL MONITER
--- NOTE | 2019-09-20 10:34 | NUR ---
PATIENT ADMITTED TO REHAB FROM ACUTE FLOOR. DR. WASSERMAN IS HIS PCP. DME AT HOME IS A CANE, NEBULIZER, PORTABLE AND HOME 02 AND A WALKER FROM [facility]. DISCHARGE PLANS ARE FOR PATIENT TO RETURN HOME WITH FAMILY. WILL FOLLOW WITH PATIENT AND WILL ASSIST WITH NEEDS.
[2019-09-20 12:54] VITALS: Ht 170.2 cm; Wt 86.2 kg
--- NOTE | 2019-09-20 17:17 | NUR ---
PT RESTING IN BED WITH EYES OPEN CALL LIGHT IN REACH WILL MONITER
--- NOTE | 2019-09-20 19:32 | NUR ---
PATIENT RECEIVED SITTING UP IN BED WATCHING TV. ASSESSMENT & VITAL SIGNS DONE. NO C/O PAIN OR DISTRESS. BED LOW. ALARM ON. URINAL & CALL LIGHT WITHIN REACH. WILL [id number] TO MONITOR.
[2019-09-20 21:29] VITALS: BP 164/68
--- NOTE | 2019-09-21 00:15 | NUR ---
PT RESTING QUIETLY IN SUPINE POSITION. PTS OWN TRILOGY MACHINE IN USE. CALL LIGHT IN REACH.
--- NOTE | 2019-09-21 00:40 | NUR ---
I have reviewed this patient and I concur with the Shift Assessment completed by the Licensed Practical Nurse today this shift.
--- NOTE | 2019-09-21 02:44 | NUR ---
PATIENT EYES CLOSED. CONTINUES TRILOGY. BED LOW. ALARM ON. CALL LIGHT WITHIN REACH. BOWERS OUTPUT CONTINUES. WILL CONTINUE TO MONITOR.
[2019-09-21 06:47] LABS: BASOPHILS 0.7 % (0-2); EOSINOPHILS 6.3 % (0-7); HEMATOCRIT 37.7 % (42.0-54.0); HEMOGLOBIN 10.8 g/dL (13.5-17.5); IMMATURE GRANULOCYTES 0.3 % (0-5); LYMPHOCYTES 21.9 % (15-50); MCH 29.8 pg (26.0-34.0); MCHC 28.6 g/dL (31.0-37.0); MCV 103.9 fL (80.0-100.0); MEAN PLATELET VOLUME 9.8 fL (7.4-10.4); NEUTROPHILS 60.8 % (40-80); PLATELET COUNT 166 10x3/uL (130-400); RBC 3.63 10x6/uL (4.20-6.10); RDW 16.8 % (11.5-14.5); WBC 6.1 10x3/uL (4.8-10.8)
[2019-09-21 06:51] LABS: CALC OSMOLALITY 293 mosm/kg (275-300); CALCIUM 9.1 mg/dL (8.5-10.1); CHLORIDE - SERUM 104 mmol/L (98-107); GLUCOSE 115 mg/dL (74-106); POTASSIUM - SERUM 4.4 mmol/L (3.5-5.1); SODIUM 145 mmol/L (136-145); UREA NITROGEN 23 mg/dL (7-18); eGFR NON AFRICAN AMERICAN 76 mL/min (90-120)
[2019-09-21 07:15] LABS: CARBON DIOXIDE 41.7 mmol/L (21.0-32.0)
--- NOTE | 2019-09-21 08:00 | NUR ---
SHIFT ASSMT COMPLETED.
[2019-09-21 08:18] VITALS: BP 135/57
--- NOTE | 2019-09-21 16:00 | NUR ---
CONTINUE TO MONITOR.
--- NOTE | 2019-09-21 16:40 | NUR ---
CARE TEAM MEETING: PATIENT IS NEW TO UNIT AND WILL BE RA AT NEXT MEETING. WILL CONTINUE TO FOLLOW WITH PATIENT
--- NOTE | 2019-09-21 19:35 | NUR ---
AWAKE AND RESTING IN BED. RESPIRATIONS SLIGHTLY LABORED AT 19/MINUTE. SATURATION 98% ON O2/2L. LUNG SOUNDS COARSE. RESPIRATORY THERAPY HERE FOR BREATHING TREATMENT. ABDOMEN SOFT BUT DISTENDED. BOWERS PATENT. RT IS GOING TO PLACE HIM ON TRILOGY AFTER BREATHING TREATMENT. CALL LIGHT IN REACH.
[2019-09-21 19:54] VITALS: BP 141/58
--- NOTE | 2019-09-21 23:33 | NUR ---
PATIENT AGIATED AND THREW 2 OBJECTS AT NURSE STATING "YOU LETTING ME " I ASSURED PATIENT THAT I WASNT DOING THAT AND ASK WHY HE WAS ANGRY. HE STATES HE WANTED A BREATHING TREATMENT. RESPIRATORY THERAPIST NOTIFED. BREATHING TREATMENT STARTED PER RT.
--- NOTE | 2019-09-22 00:19 | NUR ---
FRANCO NOW. TRILOGY ON. WILL CONTINUE TO MONITOR.
--- NOTE | 2019-09-22 00:53 | NUR ---
ASSISTED TO BATHROOM AND BACK TO BED. EASILY AGITATED. WORE O2/2L PER NASAL CANNULA WHILE IN BATHROOM. BACK ON TRILOGY NOW. CALL LIGHT IN REACH.
--- NOTE | 2019-09-22 02:44 | NUR ---
PATIENT PULLED OF TRILOGY AND WAS TRYING TO GET OUT OF BED. CONFUSED AND AGITATED. ASSISTED TO LIE BACK DOWN AND TRILOGY PLACED BACK ON. CALMER NOW. WILL CONTINUE TO MONITOR.
--- NOTE | 2019-09-22 04:23 | NUR ---
SITTING ON SIDE OF BED. STATES HE WANTS A BREATHING TREATMENT. RESPIRATORY THERAPIST NOTIFED. ASSISTED PATIENT TO LIE BACK IN BED WITH HEAD OF BED UP HIGH.
--- NOTE | 2019-09-22 04:42 | NUR ---
HAD BREATHING TREATMENT. NOW RESTING CALMLY WITH TRILOGY ON.
--- NOTE | 2019-09-22 05:12 | NUR ---
CURRENTLY RESTING BUT AWAKE WITH TRILOGY ON. CALL LIGHT IN REACH.
[2019-09-22 08:00] VITALS: BP 144/61
--- NOTE | 2019-09-22 08:00 | NUR ---
PT ANXIOUS AND CONFUSED. REFUSING TO WEAR TRILOGY CPAP AT PRESENT. HAS BEEN COMBATIVE WITH STAFF (ELECTROPHYSIOLOGY TECH REPORTED HE SWUNG AT THEM). THIS MORNING PT HE IS THROWING SOFT DRINKS AT STAFF, GRABBING CLIPBOARDS AND SHOVING BEDSIDE TABLE AROUND. HE REFUSED MEDS, RESPIRATORY THERAPY, STAFF ASST. AND LAB DRAWS. REHAB STAFF WAS WITH HIM 1:1 FOR MOST OF MORNING. HE FINALLY ALLOWED HIS TRILOGY TO BE PLACED ON FACE.....STILL CONFUSED.
--- NOTE | 2019-09-22 08:27 | NUR ---
NUTRITION F/U NURSING REPORTS THEY ARE HOLDING MORNING MEAL. PT HAS BEEN AGITATED. WILL CONTINUE TO PROVIDE DIABETIC DIET, MONITOR PT PROGRESS. RD FOLLOWING
[2019-09-22 09:14] VITALS: BP 123/64
--- NOTE | 2019-09-22 09:36 | NUR ---
DUE TO CHANGE IN MEDICAL CONDTION , PATIENT DISCHARGED FROM REHAB AND ADMITTED TO ACUTE FLOOR.
[2019-09-22 09:43] LABS: BASOPHILS 0.8 % (0-2); EOSINOPHILS 1.9 % (0-7); HEMATOCRIT 39.1 % (42.0-54.0); HEMOGLOBIN 11.4 g/dL (13.5-17.5); IMMATURE GRANULOCYTES 0.4 % (0-5); LYMPHOCYTES 19.1 % (15-50); MCH 30.5 pg (26.0-34.0); MCHC 29.2 g/dL (31.0-37.0); MCV 104.5 fL (80.0-100.0); MEAN PLATELET VOLUME 10.5 fL (7.4-10.4); MONOCYTES 9.2 % (2-11); NEUTROPHILS 68.6 % (40-80); PLATELET COUNT 164 10x3/uL (130-400); RBC 3.74 10x6/uL (4.20-6.10); RDW 16.8 % (11.5-14.5); WBC 7.5 10x3/uL (4.8-10.8)
[2019-09-22 09:54] LABS: ALBUMIN 2.8 g/dL (3.4-5.0); ANION GAP 6.3 mmol/L (8-16); BILIRUBIN - TOTAL 0.23 mg/dL (0.2-1.3); CARBON DIOXIDE 39.5 mmol/L (21.0-32.0); POTASSIUM - SERUM 4.8 mmol/L (3.5-5.1); PROTEIN - SERUM 6.7 g/dL (6.4-8.2)
[2019-09-22 09:55] LABS: CREATININE - SERUM 1.4 mg/dL (0.6-1.3)
--- NOTE | 2019-09-22 10:14 | NUR ---
PT C/O SOB AND BECOMING MORE ANXIOUS AND RESTLESS. HIS SATS WAS 91% ON CPAP. DR HAYDEN HAS WRITTEN ORDERS TO TRANSFER PT TO ACUTE FLOOR BUT PT CONDITION WORSENED AND RAPID RESPONSE CALLED. STAFF ARRIVED AND THROUGH THEIR ASSESSMENTS, IT WAS DECIDED PT WAS STABLE ENOUGH TO TRANSFER TO ACUTE FLOOR.
--- NOTE | 2019-09-22 10:30 | NUR ---
TRANSFERED TO ROOM 2238, ACUTE FLOOR. REPORT CALLED TO LETICIA SUAREZ. ALL PERSONAL BELONGINGS SENT WITH PT. MOVED PT IN BED. HAD BEEN PREVIOUSLY NOTIFIED AND SHE WAS AWARE OF TRANSFER.
--- NOTE | 2019-10-04 09:58 | RHP ---
PATIENT: FORREST BROWN MEDICAL RECORD: [id number] ACCOUNT: [id number] LOCATION:[facility]1113 : 37 ADMISSION DATE: 09/19/19 REHABILITATION HISTORY AND PHYSICAL EXAMINATION POST ADMISSION PHYSICIAN EXAMINATION DATE OF ADMISSION: 09/19/2019 ADMITTING DIAGNOSIS: Acute toxic encephalopathy. HISTORY OF PRESENT ILLNESS: The patient is an 84-year-old gentleman with history of coronary artery disease and a history of atrial fib. He is on Eliquis. The patient apparently stated that he had pain across his left and right upper quadrant of his abdomen since 09/15/2019 that was sharp in quality and increased with movement. He was seen by cardiology during his acute hospitalization, I believe it was not to be cardiac related. He had medical workup. He had been receiving PT during his hospital stay. He is on telemetry, indwelling Martinez catheter, supplemental O2. He is on an electrolyte protocol. His acute pain has been treated deconditioning, debility, impaired mobility, gait disturbance, weakness, fall risk and self-care deficits. These are all barriers to his discharge home at this time. He lives at home with his , was independent with ADLs and mobility with use of rolling walker, use of a wheelchair when outside the house. He is currently set up for mod assist with his ADLs, mod assist for mobility. He would like to return home at his prior level of functioning or better. COMORBIDITIES: In this patient include acute atypical chest pain, kujoz-eg-rhjjudv renal failure, toxic metabolic encephalopathy, narcotic use, normocytic anemia, diastolic heart failure, hypertension, diabetes, COPD, osteoarthritis, benign prostatic hypertrophy, colon cancer, lung cancer, chest pain, atypical coronary artery disease, previous stent placement, atrial fib, chronic aortic valve problems with the placement in the past with a tissue prosthesis, shortness of breath. PAST MEDICAL HISTORY: Significant for diabetes, thyroid problems, hypertension, stents, coronary artery disease, atrial fibrillation, history of colon cancer, rectal cancer, lung cancer, skin cancer, diarrhea, constipation, arthritis, prostate problems and he only has one kidney, chronic back pain also. He has also got a history of tobacco use. PAST SURGICAL HISTORY: Includes colon resection, kidney resection. CURRENT MEDICATIONS: Include Flomax 0.4 mg daily, he is on potassium 20 mEq daily, furosemide 40 mg daily, Flonase nasal spray 1 spray daily, ferrous sulfate 325 mg daily, Eliquis 5 mg daily, hydrocodone 10/325 one tab every 4 hours p.r.n., metformin 500 mg in the a.m., Tylenol 500 mg every 6 hours p.r.n., Flexeril 10 mg t.i.d. p.r.n., Protonix 40 mg daily, levothyroxine 50 mcg daily, Pravachol 40 mg at bedtime, allopurinol 200 mg b.i.d., budesonide 0.5 mg b.i.d., carvedilol 3.125 mg b.i.d. with meals. He is on a low-resistant sliding scale with Humalog, Zofran 4 mg every 8 hours p.r.n. and DuoNeb updrafts p.r.n. HABITS: Does have a distant history of tobacco use. FAMILY HISTORY: Noncontributory. HISTORY AND PHYSICAL [id number] FORREST BROWN SOCIAL HISTORY: The patient hopes to return back home and get back to his prior level of functioning. REVIEW OF SYSTEMS: GENERAL: He does complain of weakness and fatigue. HEENT: Denies cold, cough, or congestion. CARDIOVASCULAR: Denies chest pain. PHYSICAL EXAMINATION: VITAL SIGNS: Stable, afebrile. GENERAL: An elderly gentleman in no acute distress, alert upon exam. HEENT: Normocephalic and atraumatic. Mucosa moist. NECK: Supple without lymphadenopathy. LUNGS: Clear at this time in upper gutierres, decreased breath sounds in both bases. HEART: Has an irregular rate and rhythm. ABDOMEN: Soft, benign and nondistended. Positive bowel sounds times 4. EXTREMITIES: No clubbing, cyanosis or edema. NEUROLOGIC: Does have slow mentation. LABORATORY DATA: His blood sugar was 148 this morning. ASSESSMENT: This is an 84-year-old gentleman admitted to the rehab with a working diagnosis of acute toxic encephalopathy. The patient has potential to make improvement. We instituted the following multidisciplinary therapies including, but not limited to physical, occupational, respiratory, speech, nutritional services, prosthetics and orthotics. Given his complex medical condition and risks for more complications, rehabilitation services cannot be provided at a low level of care such as skilled nurse facility. PLAN: 1. Admit to [facility] for intensive inpatient therapy to include the following disciplines; A. Physical therapy to improve gait, all transfer skills and bed mobility to a modified independent level. B. Occupational therapy to a modified independent level. C. Case management to assist with discharge planning and placement options. D. Nutrition to assist with nutritional needs. E. Rehabilitation nursing to assist in monitoring the patient's underlying medical conditions and to assist with any type of bowel or bladder management. 2. The patient's current medication and medical care will be continued. 3. The patient will be placed on standard fall precautions. 4. The patient's estimated length of stay is approximately 7-10 days. 5. We will discuss this patient during care team staff meeting this week. TRANSINT:[id number] Voice Confirmation ID: [id number] DOCUMENT ID: [id number] 09/27/2019 Edited for kehinde NORTON. ERROL notes whether there has been none or any medical/functional change since admission: - No change since preadmission screen. ERROL attests patient continues to be appropriate for IRF: HISTORY AND PHYSICAL [id number] FORREST BROWN E - Continues to be appropriate. ALICE HAYDEN MD at 0958 CC: [id number] DICTATION DATE: 09/20/19 0836 POULTRY PATHOLOGIST: 09/20/19 0932 DIS IN 09/22/19 [place] [id number] [place] [address]
== END 2019-09-22 10:30 | disposition short-term general hospital (02) | DRG 92 ==
LOC: D.REHAB 15:27
PROVIDERS: ADMIT Emergency Medicine; ATTEND Emergency Medicine
DX: G92 Toxic encephalopathy (principal); I13.0 Hypertensive heart and chronic kidney disease with heart failure and stage 1 through stage 4 chronic kidney disease, or unspecified chronic kidney disease; I50.30 Unspecified diastolic (congestive) heart failure; N17.9 Acute kidney failure, unspecified; J44.1 Chronic obstructive pulmonary disease with (acute) exacerbation; E11.22 Type 2 diabetes mellitus with diabetic chronic kidney disease; N18.9 Chronic kidney disease, unspecified; R07.9 Chest pain, unspecified; M19.90 Unspecified osteoarthritis, unspecified site; N40.0 Benign prostatic hyperplasia without lower urinary tract symptoms; I25.10 Atherosclerotic heart disease of native coronary artery without angina pectoris; I48.91 Unspecified atrial fibrillation; R06.02 Shortness of breath; R53.81 Other malaise; R26.9 Unspecified abnormalities of gait and mobility; Z85.038 Personal history of other malignant neoplasm of large intestine; D63.1 Anemia in chronic kidney disease

== ENCOUNTER 2019-09-22 10:45 | Inpatient (IN) | payer MEDICARE, OTHER ==
[~2019-09-22] VITALS: Ht 170.2 cm; Wt 85.3 kg
[~2019-09-22 10:45] MED LIST changes: +ELIQUIS2.5 MG PO; -ELIQUIS5 MG PO
[2019-09-22 11:02] VITALS: BP 102/66; BMI 29.5
[2019-09-22 12:44] VITALS: BP 102/86
[2019-09-22 13:44] VITALS: Ht 170.2 cm; Wt 85.3 kg
[2019-09-22 15:39] VITALS: BP 122/73
[2019-09-22 21:23] VITALS: BP 131/66
[2019-09-23 01:14] VITALS: BP 127/64
[2019-09-23 05:09] LABS: BASOPHILS 0.2 % (0-2); EOSINOPHILS 0.2 % (0-7); HEMATOCRIT 36.5 % (42.0-54.0); HEMOGLOBIN 10.8 g/dL (13.5-17.5); IMMATURE GRANULOCYTES 0.4 % (0-5); LYMPHOCYTES 17.1 % (15-50); MCH 30.1 pg (26.0-34.0); MCHC 29.6 g/dL (31.0-37.0); MEAN PLATELET VOLUME 9.8 fL (7.4-10.4); MONOCYTES 0.4 % (2-11); NEUTROPHILS 81.7 % (40-80); PLATELET COUNT 165 10x3/uL (130-400); RBC 3.59 10x6/uL (4.20-6.10); RDW 16.5 % (11.5-14.5)
[2019-09-23 05:16] LABS: MCV 101.7 fL (80.0-100.0)
[2019-09-23 05:27] LABS: ANION GAP 4.7 mmol/L (8-16); CALCIUM 9.4 mg/dL (8.5-10.1); CARBON DIOXIDE 38.8 mmol/L (21.0-32.0); CREATININE - SERUM 1.2 mg/dL (0.6-1.3); POTASSIUM - SERUM 4.5 mmol/L (3.5-5.1)
[2019-09-23 06:01] VITALS: BP 142/70
[2019-09-23 07:41] VITALS: BP 152/75
--- NOTE | 2019-09-23 08:04 | NUR ---
PT C/O OF PAIN AROUND PENIS WHERE BOWERS CATHETER INSERTS. PT HAS A REDDENED AREA AROUND TIP OF PENINS AND SCROTUM IS EXCORIATED. CLEANSED PERINEAL AREA WITH HIBACLENS AND APPLIED BUT PASTE TO PENIS AND SCROTUM. COMPLETE LINEN CHANGE DONE.
[2019-09-23 08:29] LABS: APPEARANCE CLOUDY (CLEAR); BILIRUBIN NEGATIVE (NEGATIVE); COLOR YELLOW (YELLOW); GLUCOSE NEGATIVE (NEGATIVE); KETONE NEGATIVE (NEGATIVE); NITRITE POSITIVE (NEGATIVE); PROTEIN TRACE mg/dL (NEGATIVE); SPECIFIC GRAVITY 1.015 (1.005-1.020); UROBILINOGEN NORMAL (NORMAL)
[2019-09-23 08:30] LABS: BACTERIA MANY /hpf (NEGATIVE); EPITHELIAL CELLS OCC /hpf (0-5)
[2019-09-23 08:31] LABS: YEAST <1+ /hpf (NONE SEEN)
[2019-09-23 08:32] LABS: AMORPHOUS SEDIMENT <1+ /lpf (NONE SEEN); MUCUS <1+ /lpf (NONE SEEN)
--- NOTE | 2019-09-23 12:19 | NUR ---
I have reviewed this patient and I concur with the Shift Assessment completed by the Licensed Practical Nurse today this shift.
--- NOTE | 2019-09-23 12:48 | NUR ---
PT EATING LUNCH WILL WAIT UNTIL PT IS DONE EATING AND WILL GIVE DULCOLAX SUPPOSITORY.
--- NOTE | 2019-09-23 15:20 | MORECARE ---
CASE MANAGEMENT DISCHARGE SUMMARY PATIENT: FORREST BROWN UNIT: [id number] ADM DATE: 09/22/19 AGE: 84 : 36 SEX: M ROOM/BED: D.2238 AUTHOR: VIRA STORY PHYSICIAN: REFERRING PHYSICIAN: ALICE HAYDEN MD DATE OF SERVICE: 09/23/19 Discharge Plan Patient Name: FORREST BROWN Facility: [facility]:[place] : 1935 Planned Disposition: Home Hlth Svc w Plan Readm Anticipated Discharge Date: Discharge Date: Expected LOS: Initial Reviewer: [id number] Initial Review Date: 09/23/2019 Generated: 09/23/19 4:19 pm Comments DCP- Discharge Planning Updated by [id number]: Laurence Franco on 09/23/19 2:[address] Patient Name: FORREST BROWN Admission Status: Elective Accout number: [id number] Admission Date: 09-22-2019 : 1935 Admission Diagnosis: Attending: MICHAEL HAYDEN Current LOS: 1 Anticipated DC Date: Planned Disposition: Home Hlth Svc w Plan Readm Primary Insurance: MEDICARE A & B Discharge Planning Comments: CM MET WITH PATIENT TO DISCUSS DC PLANNING/NEEDS AFTER OBTAINING VERBAL CONSENT. PLANS TO DC TO HOME. HAS HH WITH PT BUT CAN'T REMEMBER THE COMPANY NAME. THE WILL LET US KNOW WHEN SHE FINDA OUT. PLANS TO RESUME HH. HAS DME WITH [facility]. WOULD LIKE A SHOWER CHAIR, JUAN SIGNED FOR DME [facility] AND HH OF CURRENT COMPANY. CM TO FOLLOW AND ASSIST NEEDED. Administrative Staff Supervisor: Laurence Franco DCPIA - Discharge Planning Initial Assessment Updated by [id number]: Laurence Franco on 09/23/19 3:17 pm * Is the patient Alert and Oriented? Yes * PCP LISY * Pharmacy [facility] * Preadmission Environment Home with Family * ADLs Independent * Other Equipment TRILOGY,O2, PORTABLE 02, WALKER, CANE, WC * List name and contact numbers for known caregivers / representatives who currently or will assist patient after discharge: CLARA, * Verbal permission to speak to the caregivers and representatives has been obtained from the patient. Yes * Community resources currently utilized Home Health * Please name any agencies selected above. CANT REMEMBER NAME, WILL LET US KNOW [facility] * Additional services required to return to the preadmission environment? No * Can the patient safely return to the preadmission environment? Yes * Has this patient been hospitalized within the prior 30 days at any hospital? No Coverage Notice Reviewer: [id number] Shala Franco Notice Issued Date-Time: 09/23/2019 15:19 Notice Type: Patient Choice Letter Notice Delivered To: Family Member Relationship to Patient: Spouse Medical Records Technician Name: CLARA Delivery Method: - Shea Days: Prior Verbal Notification: Recipient Understood Notice: Recipient Signature: Med Rec Note Co-signed by Attending: Coverage Notice Comment: Patient Name: FORREST BROWN Page [phone] at 1520 All edits/amendments must be made on the electronic document DICTATION DATE: 09/23/191518 DRAPERY HANGER: MARISSA 09/23/191518 RPT#: [id number] DC DATE: STATUS: ADM IN [facility] [address] [place] [address] END OF REPORT
[2019-09-23 15:24] VITALS: BP 147/74
--- NOTE | 2019-09-23 16:13 | NUR ---
Rehab Note- Acute Inpatient Rehab prescreen order received. THe patient was transferred to the acute hospital from [facility] Acute Inpatient rehab due to rapid response due to respiratory failure yesterday. Unable to adequately participate in PT per PT Eval today. Will follow at this time. Thank you for this referral! Sarika Pringle RN Clinical Liaison, [facility] Rehab
[2019-09-23 21:16] VITALS: BP 133/57
--- NOTE | 2019-09-23 23:33 | NUR ---
PT HAD LARGE LOOSE STOOL ON BEDPAN. CHANGED PADS AND PULLED PT UP IN BED. PT SHORT OF BREATH AFTER TURNING. CALLED RT FOR BREATHING TX. NO OTHER NEEDS. WILL REASSESS AND CONTINUE TO MONITOR.
[2019-09-24 00:57] VITALS: BP 142/59
[2019-09-24 05:00] VITALS: BP 165/80
[2019-09-24 06:19] LABS: BASOPHILS 0 % (0-2); EOSINOPHILS 0 % (0-7); HEMATOCRIT 35.4 % (42.0-54.0); HEMOGLOBIN 10.5 g/dL (13.5-17.5); IMMATURE GRANULOCYTES 0.2 % (0-5); LYMPHOCYTES 10.3 % (15-50); MCH 30.2 pg (26.0-34.0); MCHC 29.7 g/dL (31.0-37.0); MCV 101.7 fL (80.0-100.0); MEAN PLATELET VOLUME 10.4 fL (7.4-10.4); NEUTROPHILS 87.5 % (40-80); PLATELET COUNT 182 10x3/uL (130-400); RBC 3.48 10x6/uL (4.20-6.10); RDW 16.7 % (11.5-14.5)
[2019-09-24 06:26] LABS: WBC 8.2 10x3/uL (4.8-10.8)
[2019-09-24 06:52] LABS: ALBUMIN 2.5 g/dL (3.4-5.0); ANION GAP 8.3 mmol/L (8-16); BILIRUBIN - TOTAL 0.19 mg/dL (0.2-1.3); CALCIUM 8.9 mg/dL (8.5-10.1); CREATININE - SERUM 1.2 mg/dL (0.6-1.3); POTASSIUM - SERUM 4.3 mmol/L (3.5-5.1); PROTEIN - SERUM 6.5 g/dL (6.4-8.2)
[2019-09-24 08:17] VITALS: BP 165/81
--- NOTE | 2019-09-24 09:26 | NUR ---
RESTING IN BED, IN ROOM, RESP GIVING AM TREATMENT AND XRAY HERE FOR CXR, CONT TO MONITOR,
[2019-09-24 17:45] VITALS: BP 130/74
[2019-09-24 20:33] VITALS: BP 133/55
[2019-09-25 01:00] VITALS: BP 154/72
[2019-09-25 05:21] VITALS: BP 167/77
[2019-09-25 06:31] LABS: BASOPHILS 0 % (0-2); EOSINOPHILS 0 % (0-7); HEMATOCRIT 38.4 % (42.0-54.0); HEMOGLOBIN 11.3 g/dL (13.5-17.5); IMMATURE GRANULOCYTES 0.3 % (0-5); LYMPHOCYTES 9.6 % (15-50); MCH 30.4 pg (26.0-34.0); MCHC 29.4 g/dL (31.0-37.0); MCV 103.2 fL (80.0-100.0); MEAN PLATELET VOLUME 10.7 fL (7.4-10.4); MONOCYTES 2.2 % (2-11); NEUTROPHILS 87.9 % (40-80); PLATELET COUNT 153 10x3/uL (130-400); RBC 3.72 10x6/uL (4.20-6.10); RDW 16.9 % (11.5-14.5); WBC 7.9 10x3/uL (4.8-10.8)
[2019-09-25 06:56] LABS: ALBUMIN 2.6 g/dL (3.4-5.0); BILIRUBIN - TOTAL 0.27 mg/dL (0.2-1.3); CALCIUM 9.2 mg/dL (8.5-10.1); CARBON DIOXIDE 36.8 mmol/L (21.0-32.0); CREATININE - SERUM 1.1 mg/dL (0.6-1.3); PROTEIN - SERUM 6.6 g/dL (6.4-8.2)
[2019-09-25 06:58] LABS: ANION GAP 7.4 mmol/L (8-16); POTASSIUM - SERUM 4.2 mmol/L (3.5-5.1)
[2019-09-25 08:28] VITALS: BP 180/84
--- NOTE | 2019-09-25 10:19 | NUR ---
NO DISTRESS NOTED, UP IN RECLINER, IN ROOM, CONT TO MONITOR RESP STATUS, O2 PER NC AT 2L, FEET UP FOR EDEMA
[2019-09-25 12:09] VITALS: BP 123/54
[2019-09-25 16:11] VITALS: BP 139/55
[2019-09-25 20:51] VITALS: BP 160/75
--- NOTE | 2019-09-25 21:54 | NUR ---
AWAKE,ALERT.SITTING UP IN BED WATCHING TV WITH NO DISTRESS NOTED. O2 @ 2l PER NC ON. RESP UNLABORED. AT BEDSIDE. CL IN REACH
[2019-09-26 01:05] VITALS: BP 148/70
[2019-09-26 05:06] VITALS: BP 118/70
--- NOTE | 2019-09-26 07:36 | NUR ---
REC'D IN BED WITH BIPAP IN USE WITH NO DISTRESS NOTED. RESP EVEN AND UNLABORED WITH NO DISTRESS NOTED. ASSESSMENT COMPLETED. C/L IN REACH AT BEDSIDE.
[2019-09-26 07:49] LABS: BASOPHILS 0 % (0-2); EOSINOPHILS 0 % (0-7); HEMATOCRIT 39.7 % (42.0-54.0); HEMOGLOBIN 11.6 g/dL (13.5-17.5); IMMATURE GRANULOCYTES 0.9 % (0-5); LYMPHOCYTES 6.7 % (15-50); MCH 29.8 pg (26.0-34.0); MCHC 29.2 g/dL (31.0-37.0); MCV 102.1 fL (80.0-100.0); MEAN PLATELET VOLUME 10.6 fL (7.4-10.4); MONOCYTES 4.6 % (2-11); NEUTROPHILS 87.8 % (40-80); PLATELET COUNT 137 10x3/uL (130-400); RBC 3.89 10x6/uL (4.20-6.10); RDW 16.8 % (11.5-14.5); WBC 9.1 10x3/uL (4.8-10.8)
[2019-09-26 08:13] LABS: ALBUMIN 2.6 g/dL (3.4-5.0); ALKALINE PHOSPHATASE 100 U/L (46-116); ALT (SGPT) 31 U/L (10-68); BILIRUBIN - TOTAL 0.31 mg/dL (0.2-1.3); CALC OSMOLALITY 295 mosm/kg (275-300); CALCIUM 8.8 mg/dL (8.5-10.1); CARBON DIOXIDE 34.3 mmol/L (21.0-32.0); CHLORIDE - SERUM 103 mmol/L (98-107); GLUCOSE 168 mg/dL (74-106); PHOSPHOROUS 3.8 mg/dL (2.5-4.9); POTASSIUM - SERUM 4.6 mmol/L (3.5-5.1); PROTEIN - SERUM 6.1 g/dL (6.4-8.2); SODIUM 143 mmol/L (136-145); UREA NITROGEN 31 mg/dL (7-18); eGFR NON AFRICAN AMERICAN 76 mL/min (90-120)
[2019-09-26 08:22] VITALS: BP 169/78
--- NOTE | 2019-09-26 10:21 | NUR ---
I have reviewed this patient and I concur with the Shift Assessment completed by the Licensed Practical Nurse today this shift.
--- NOTE | 2019-09-26 11:16 | NUR ---
WAS MEDICATED WITH APAP PER ORDERS OF C/O RIB PAIN RATING 8/10 ON PAIN SCALE. C/L IN REACH AT BEDSIDE.
[2019-09-26 12:52] VITALS: BP 137/62
[2019-09-26] MEDS ORDERED: ROCEPHIN 1 GM/D51 G1 IVPB (13:30)
[2019-09-26] MEDS ORDERED: ZITHROMAX 500M500 MG IVPB (13:30)
[2019-09-26] MEDS ORDERED: ATROVENT 0.02%2.5 ML UPD (13:31)
[2019-09-26] MEDS ORDERED: BROVANA15 MCG/2 M INH (13:31)
[2019-09-26] MEDS ORDERED: ACETAMINOPHEN325 MG PO (13:32)
[2019-09-26] MEDS ORDERED: COLACE100 MG PO (13:33)
[2019-09-26] MEDS ORDERED: MUCINEX DM ER1 EAC1 PO (13:33)
[2019-09-26] MEDS ORDERED: DALIRESP500 MCG PO (13:33)
[2019-09-26] MEDS ORDERED: PREDNISONE20 MG PO (13:34)
[2019-09-26] MEDS ORDERED: Xopenex 0.63 MG INH INH ×2 (13:34)
[2019-09-26] MEDS ORDERED: ZOFRAN ODT4 MG/UDTAB PO (13:37)
--- NOTE | 2019-09-26 14:04 | MORECARE ---
CASE MANAGEMENT DISCHARGE SUMMARY PATIENT: FORREST BROWN UNIT: [id number] ADM DATE: 09/22/19 AGE: 84 : 36 SEX: M ROOM/BED: D.2238 AUTHOR: VIRA STORY PHYSICIAN: REFERRING PHYSICIAN: ALICE HAYDEN MD DATE OF SERVICE: 09/26/19 Discharge Plan Patient Name: FORREST BROWN Facility: [facility]:[place] : 1935 Planned Disposition: Home Hlth Svc w Plan Readm Anticipated Discharge Date: Discharge Date: Expected LOS: Initial Reviewer: [email or web address] Initial Review Date: 09/23/2019 Generated: 09/26/19 3:04 pm Comments DCP- Discharge Planning Updated by [id number]: Gini Charles on 09/26/19 1:[address] CM spoke with patient and his , Clara. They are both in agreement to discharge to inpatient rehab. Discharge orders written. I spoke with Sarika and they are accepting him today. Discharge today to inpatient rehab. DCP- Discharge Planning Updated by [id number]: Laurence Franco on 09/23/19 2:[address] Patient Name: FORREST BROWN Admission Status: Elective Accout number: [id number] Admission Date: 09-22-2019 : 1935 Admission Diagnosis: Attending: MICHAEL HAYDEN Current LOS: 1 Anticipated DC Date: Planned Disposition: Home Hlth Svc w Plan Readm Primary Insurance: MEDICARE A & B Discharge Planning Comments: CM MET WITH PATIENT TO DISCUSS DC PLANNING/NEEDS AFTER OBTAINING VERBAL CONSENT. PLANS TO DC TO HOME. HAS HH WITH PT BUT CAN'T REMEMBER THE COMPANY NAME. THE WILL LET US KNOW WHEN SHE FINDA OUT. PLANS TO RESUME HH. HAS DME WITH [facility]. WOULD LIKE A SHOWER CHAIR, JUAN SIGNED FOR DME [facility] AND HH OF CURRENT COMPANY. CM TO FOLLOW AND ASSIST NEEDED. Parts Cataloger: Laurence Franco DCPIA - Discharge Planning Initial Assessment Updated by [id number]: Laurence Franco on 09/23/19 3:17 pm * Is the patient Alert and Oriented? Yes * PCP LISY * Pharmacy [facility] * Preadmission Environment Home with Family * ADLs Independent * Other Equipment TRILOGY,O2, PORTABLE 02, WALKER, CANE, WC * List name and contact numbers for known caregivers / representatives who currently or will assist patient after discharge: CLARA, * Verbal permission to speak to the caregivers and representatives has been obtained from the patient. Yes * Community resources currently utilized Home Health * Please name any agencies selected above. CANT REMEMBER NAME, WILL LET US KNOW JO[facility] * Additional services required to return to the preadmission environment? No * Can the patient safely return to the preadmission environment? Yes * Has this patient been hospitalized within the prior 30 days at any hospital? No Coverage Notice Reviewer: [id number] Shala Franco Notice Issued Date-Time: 09/23/2019 15:19 Notice Type: Patient Choice Letter Notice Delivered To: Family Member Relationship to Patient: Spouse Truss Builder Name: CLARA Delivery Method: HAND - Hand Delivered Shea Days: Prior Verbal Notification: Recipient Understood Notice: Yes Recipient Signature: Yes Med Rec Note Co-signed by Attending: Coverage Notice Comment: KATERIN TATE CURRENT . Reviewer: [id number] Shala Charles Notice Issued Date-Time: 09/26/2019 14:02 Notice Type: IM Discharge Notice Notice Delivered To: Patient Relationship to Patient: Self Truss Builder Name: Delivery Method: HAND - Hand Delivered Shea Days: Prior Verbal Notification: Recipient Understood Notice: Yes Recipient Signature: Yes Med Rec Note Co-signed by Attending: Coverage Notice Comment: IMM explained, signed, given, copy placed in MR Last DP export: 09/23/19 2:20 Patient Name: FORREST BROWN Page [phone] at 1404 All edits/amendments must be made on the electronic document DICTATION DATE: 09/26/19 1404 BATTERY PLATE REMOVER: MARISSA 09/26/19 1404 RPT#: [id number] DC DATE: STATUS: ADM IN [facility] [address] [place] [address] END OF REPORT
--- NOTE | 2019-09-26 14:43 | NUR ---
Nutrition follow-up: diet: consistent CHO PO intake ~60% average of meals Labs reviewed WT: 187# +BM RDN following.
--- NOTE | 2019-09-26 15:14 | NUR ---
OT NOTE: PT COMPETED SIT TO STAND WITH SBA. PT COMPLETED ADL MOB WITH RW WITH SBA/CGA. PT COMPLETED FACE/HAND WASH WITH SETUP. THANK YOU, SARAH HACKETT
--- NOTE | 2019-09-26 16:19 | NUR ---
DC DOWN TO INPATIENT REHAB. ALERT AND ORIENTED. RESP EVEN AND UNLABORED WITH NO DISTRESS NOTED. CAN EXPRESS NEEDS AND WANTS. IV DC WITH TIP INTACT. STABLE CONDITION UPON DEPARTURE.
--- NOTE | 2019-09-30 10:32 | MORECARE ---
CASE MANAGEMENT DISCHARGE SUMMARY PATIENT: FORREST BROWN UNIT: [id number] ADM DATE: 09/22/19 AGE: 84 : 36 SEX: M ROOM/BED: D.2238 AUTHOR: VIRA STORY PHYSICIAN: REFERRING PHYSICIAN: ALICE HAYDEN MD DATE OF SERVICE: 09/30/19 Discharge Plan Patient Name: FORREST BROWN Facility: [facility]:[place] : 1935 Planned Disposition: Home Hlth Svc w Plan Readm Anticipated Discharge Date: Discharge Date: 09/26/2019 Expected LOS: 0 Initial Reviewer: [email or web address] Initial Review Date: 09/23/2019 Generated: 09/30/19 11:32 am Comments DCP- Discharge Planning Updated by [id number]: Gini Charles on 09/26/19 1:[address] CM spoke with patient and his , Clara. They are both in agreement to discharge to inpatient rehab. Discharge orders written. I spoke with Sarika and they are accepting him today. Discharge today to inpatient rehab. DCP- Discharge Planning Updated by [id number]: Laurence Franco on 09/23/19 2:[address] Patient Name: FORREST BROWN Admission Status: Elective Accout number: [id number] Admission Date: 09-22-2019 : 1935 Admission Diagnosis: Attending: MICHAEL HAYDEN Current LOS: 1 Anticipated DC Date: Planned Disposition: Home [facility] S[facility] w Plan Readm Primary Insurance: MEDICARE A & B Discharge Planning Comments: CM MET WITH PATIENT TO DISCUSS DC PLANNING/NEEDS AFTER OBTAINING VERBAL CONSENT. PLANS TO DC TO HOME. HAS HH WITH PT BUT CAN'T REMEMBER THE COMPANY NAME. THE WILL LET US KNOW WHEN SHE FINDA OUT. PLANS TO RESUME HH. HAS DME WITH [facility]. WOULD LIKE A SHOWER CHAIR, JUAN SIGNED FOR DME [facility] AND HH OF CURRENT COMPANY. CM TO FOLLOW AND ASSIST NEEDED. Automobile Repair Service Estimator: Laurence Franco DCPIA - Discharge Planning Initial Assessment Updated by [id number]: Laurence Franco on 09/23/19 3:17 pm * Is the patient Alert and Oriented? Yes * PCP LISY * Pharmacy [facility] * Preadmission Environment Home with Family * ADLs Independent * Other Equipment TRILOGY,O2, PORTABLE 02, WALKER, CANE, WC * List name and contact numbers for known caregivers / representatives who currently or will assist patient after discharge: CLARA, * Verbal permission to speak to the caregivers and representatives has been obtained from the patient. Yes * Community resources currently utilized Home Health * Please name any agencies selected above. CANT REMEMBER NAME, WILL LET US KNOW [facility] * Additional services required to return to the preadmission environment? No * Can the patient safely return to the preadmission environment? Yes * Has this patient been hospitalized within the prior 30 days at any hospital? No Coverage Notice Reviewer: [id number] - Laurence Franco Notice Issued Date-Time: 09/23/2019 15:19 Notice Type: Patient Choice Letter Notice Delivered To: Family Member Relationship to Patient: Spouse Roll Cutter Name: CLARA Delivery Method: HAND - Hand Delivered Shea Days: Prior Verbal Notification: Recipient Understood Notice: Yes Recipient Signature: Yes Med Rec Note Co-signed by Attending: Coverage Notice Comment: KATERIN TATE CURRENT . Reviewer: [id number] Shala Charles Notice Issued Date-Time: 09/26/2019 14:02 Notice Type: IM Discharge Notice Notice Delivered To: Patient Relationship to Patient: Self Roll Cutter Name: Delivery Method: HAND - Hand Delivered Shea Days: Prior Verbal Notification: Recipient Understood Notice: Yes Recipient Signature: Yes Med Rec Note Co-signed by Attending: Coverage Notice Comment: IMM explained, signed, given, copy placed in MR Last DP export: 09/26/19 1:05 Patient Name: FORREST BROWN Page [id number] at 1032 All edits/amendments must be made on the electronic document DICTATION DATE: 09/30/19 1032 GREENHOUSE SUPERINTENDENT: MARISSA 09/30/19 1032 RPT#: [id number] DC DATE:09/26/19 STATUS: DIS IN [facility] [address] [place] [address] END OF REPORT
== END 2019-09-26 16:21 | DRG 202 ==
LOC: D.MS 10:45
PROVIDERS: Family Medicine; Internal Medicine Pulmonary Disease; ADMIT Emergency Medicine; ATTEND Emergency Medicine
DX: J20.9 Acute bronchitis, unspecified (principal); G93.41 Metabolic encephalopathy; J96.21 Acute and chronic respiratory failure with hypoxia; R53.2 Functional quadriplegia; J96.22 Acute and chronic respiratory failure with hypercapnia; J44.1 Chronic obstructive pulmonary disease with (acute) exacerbation; N39.0 Urinary tract infection, site not specified; I13.0 Hypertensive heart and chronic kidney disease with heart failure and stage 1 through stage 4 chronic kidney disease, or unspecified chronic kidney disease; N17.9 Acute kidney failure, unspecified; J44.0 Chronic obstructive pulmonary disease with (acute) lower respiratory infection; E11.65 Type 2 diabetes mellitus with hyperglycemia; E11.22 Type 2 diabetes mellitus with diabetic chronic kidney disease; N18.9 Chronic kidney disease, unspecified; M19.90 Unspecified osteoarthritis, unspecified site; D53.9 Nutritional anemia, unspecified; I25.10 Atherosclerotic heart disease of native coronary artery without angina pectoris; Z85.038 Personal history of other malignant neoplasm of large intestine; Z85.118 Personal history of other malignant neoplasm of bronchus and lung; G47.33 Obstructive sleep apnea (adult) (pediatric); N40.0 Benign prostatic hyperplasia without lower urinary tract symptoms; I48.91 Unspecified atrial fibrillation; Z79.01 Long term (current) use of anticoagulants; E78.5 Hyperlipidemia, unspecified; I50.9 Heart failure, unspecified

== ENCOUNTER 2019-09-26 15:49 | Inpatient (IN) | payer MEDICARE, OTHER ==
[~2019-09-26] VITALS: Ht 170.2 cm; Wt 86.2 kg
[~2019-09-26 15:49] MED LIST changes: +ATROVENT 0.02%2.5 ML UPD; +BROVANA15 MCG/2 M INH; +COLACE100 MG PO; -ELIQUIS2.5 MG PO; +ELIQUIS5 MG PO; +PREDNISONE20 MG PO; +ROCEPHIN 1 GM/D51 G1 IVPB; +Xopenex 0.63 MG INH INH; +ZITHROMAX 500M500 MG IVPB; +ZOFRAN ODT4 MG/UDTAB PO
[2019-09-26 16:19] VITALS: BP 167/73; BMI 28.2
[2019-09-26 19:23] VITALS: BP 144/64
--- NOTE | 2019-09-26 19:40 | NUR ---
PT SITTING UP IN BED. CL IN REACH. DENIES NEEDS AT THIS TIME. BED IN LOW SIDE RAILS X2. O2 ON 2L VIA NC. LUNGS DIMINISHED. BOWEL ACTIVE X4. A/O X4. RESP EVEN AND UNLABORED WILL CONTINUE TO MONITOR. BOWERS INTACT, URINE WNL.
--- NOTE | 2019-09-27 02:56 | NUR ---
QUIET HOURS. PT LYING IN BED EYES CLOSED RESTING QUIETLY. RR EVEN AND UNLABORED. BIPAP IN USE. CL IN REACH
--- NOTE | 2019-09-27 03:54 | NUR ---
I have reviewed this patient and I concur with the Shift Assessment completed by the Licensed Practical Nurse today this shift.
[2019-09-27 07:29] LABS: CALC OSMOLALITY 295 mosm/kg (275-300); CALCIUM 9.2 mg/dL (8.5-10.1); CARBON DIOXIDE 39.4 mmol/L (21.0-32.0); CHLORIDE - SERUM 104 mmol/L (98-107); POTASSIUM - SERUM 4.3 mmol/L (3.5-5.1); SODIUM 145 mmol/L (136-145); UREA NITROGEN 31 mg/dL (7-18); eGFR NON AFRICAN AMERICAN 76 mL/min (90-120)
[2019-09-27 07:35] LABS: BASOPHILS 0 % (0-2); EOSINOPHILS 0.1 % (0-7); HEMOGLOBIN 11.5 g/dL (13.5-17.5); IMMATURE GRANULOCYTES 0.3 % (0-5); LYMPHOCYTES 11.3 % (15-50); MCH 29.9 pg (26.0-34.0); MCHC 29.5 g/dL (31.0-37.0); MCV 101.3 fL (80.0-100.0); MEAN PLATELET VOLUME 10.7 fL (7.4-10.4); MONOCYTES 7.3 % (2-11); RBC 3.85 10x6/uL (4.20-6.10); RDW 16.6 % (11.5-14.5); WBC 10.5 10x3/uL (4.8-10.8)
[2019-09-27 07:36] LABS: GLUCOSE 92 mg/dL (74-106)
[2019-09-27 07:38] LABS: PLATELET COUNT 176 10x3/uL (130-400)
--- NOTE | 2019-09-27 08:00 | NUR ---
PT RESTING IN BED WITH EYES OPEN CALL LIGHT IN REACH WILL MONITER
[2019-09-27 08:18] VITALS: BP 135/60
--- NOTE | 2019-09-27 11:00 | NUR ---
I have reviewed this patient and I concur with the Shift Assessment completed by the Licensed Practical Nurse today this shift.
[2019-09-27 13:47] VITALS: Ht 170.2 cm; Wt 86.2 kg
--- NOTE | 2019-09-27 15:34 | NUR ---
PATIENT ADMITTED TO REHAB FROM ACUTE FLOOR. DR. WASSERMAN IS PATIENT PCP. DME AT HOME IS PORTABLE AND HOME O2 FROM [place], CANE, WALKER AND A NEBULIZER. DISCHARGE PLANS ARE FOR PATIENT TO RETURN HOME WITH HIS SPOUSE. WILL CONTINUE TO FOLLOW WITH PATIENT AND WILL ASSIST WITH DISCHARGE NEEDS.
--- NOTE | 2019-09-27 18:21 | NUR ---
PT RESTING IN BED WITH EYES OPEN CALL LIGHT IN REACH WILL MONITER
--- NOTE | 2019-09-27 19:27 | NUR ---
GREETED PATIENT AND INTRODUCED MYSELF HIS NURSE. PATIENT IS LAYING IN BED AT THIS TIME. HOB AT 40 DEGREE. O2 AT 2L IN USE VIA NC. RESPIRATIONS EVEN. NO S/S OF DISTRESS. DENIES ANY FURTHER NEEDS AT THIS TIME. CALL LIGHT IN REACH.
[2019-09-27 20:00] VITALS: BP 165/75
--- NOTE | 2019-09-28 00:56 | NUR ---
PT. RESTING QUIETLY WITH EYES CLOSED. BIPAP IN USE. RESPIRATIONS EVEN. NO S/S OF DISTRESS. SR UP X 2. BED IN LOWEST POSITION. CALL LIGHT IN REACH.
[2019-09-28 06:12] LABS: CALCIUM 8.8 mg/dL (8.5-10.1); CHLORIDE - SERUM 105 mmol/L (98-107); CREATININE - SERUM 0.8 mg/dL (0.6-1.3); GLUCOSE 95 mg/dL (74-106); SODIUM 147 mmol/L (136-145); eGFR NON AFRICAN AMERICAN > 90 mL/min (90-120)
[2019-09-28 06:14] LABS: CALC OSMOLALITY 294 mosm/kg (275-300); POTASSIUM - SERUM 5.1 mmol/L (3.5-5.1); UREA NITROGEN 21 mg/dL (7-18)
[2019-09-28 06:15] LABS: CARBON DIOXIDE 41.4 mmol/L (21.0-32.0)
[2019-09-28 07:12] LABS: BASOPHILS 0.1 % (0-2); EOSINOPHILS 0.7 % (0-7); HEMOGLOBIN 11.7 g/dL (13.5-17.5); IMMATURE GRANULOCYTES 0.8 % (0-5); LYMPHOCYTES 21.2 % (15-50); MCH 30.1 pg (26.0-34.0); MCHC 29.3 g/dL (31.0-37.0); MCV 102.8 fL (80.0-100.0); MEAN PLATELET VOLUME 10.8 fL (7.4-10.4); MONOCYTES 7.9 % (2-11); NEUTROPHILS 69.3 % (40-80); PLATELET COUNT 160 10x3/uL (130-400); RBC 3.89 10x6/uL (4.20-6.10); RDW 16.5 % (11.5-14.5); WBC 12.6 10x3/uL (4.8-10.8)
--- NOTE | 2019-09-28 07:30 | NUR ---
PATIENT HAS BI-PAP ON. RESTING WELL. CALL LIGHT WITHIN REACH. WILL CONTINUE WITH PLAN OF CARE
[2019-09-28 08:00] VITALS: BP 156/40
--- NOTE | 2019-09-28 10:00 | NUR ---
PATIENT IN REHAB ROOM. WORKING WITH PHYSICAL THERAPIST. DENIES ANY PAIN/DISC AT THIS TIME.
--- NOTE | 2019-09-28 11:00 | NUR ---
I have reviewed this patient and I concur with the Shift Assessment completed by the Licensed Practical Nurse today this shift.
--- NOTE | 2019-09-28 13:05 | NUR ---
PRN PAIN MEDICATION GIVEN PER PATIENT REQUEST
--- NOTE | 2019-09-28 14:56 | NUR ---
CARE TEAM MEETING: PATIENT IS NEW TO UNIT AND WILL BE RA AT NEXT MEETING. WILL CONTINUE TO FOLLOW WITH PATIENT.
--- NOTE | 2019-09-28 19:10 | NUR ---
GREETED PATIENT AND INTRODUCED MYSELF HIS NURSE. ASSITED PATIENT TO BATHROOM WITH ANOTHER NURSE. PATIENT PRODUCED SMALL BOWEL MOVEMENT. PATIENT BACK TO BED AND REPOSITIONED FOR COMFORT. O2 AT 2L IN USE VIA NC. RESPIRATIONS EVEN. NO S/S OF DISTRESS. CALL LIGHT IN REACH. DENIES ANY FURTHER NEEDS AT THIS TIME.
[2019-09-28 20:00] VITALS: BP 142/62
--- NOTE | 2019-09-29 02:13 | NUR ---
PT. RESTING QUIETLY WITH EYES CLOSED. HOB AT [address] RESPIRATIONS EVEN. NO S/S OF DISTRESS. SR UP X 2. BED IN LOWEST POSITION, CALL LIGHT IN REACH.
[2019-09-29 06:55] LABS: CALC OSMOLALITY 292 mosm/kg (275-300); CALCIUM 8.9 mg/dL (8.5-10.1); CHLORIDE - SERUM 100 mmol/L (98-107); CREATININE - SERUM 0.9 mg/dL (0.6-1.3); GLUCOSE 115 mg/dL (74-106); SODIUM 145 mmol/L (136-145); UREA NITROGEN 20 mg/dL (7-18); eGFR NON AFRICAN AMERICAN 85 mL/min (90-120)
[2019-09-29 07:11] LABS: POTASSIUM - SERUM 4.1 mmol/L (3.5-5.1)
[2019-09-29 07:12] LABS: CARBON DIOXIDE 44.3 mmol/L (21.0-32.0)
[2019-09-29 08:00] VITALS: BP 144/58
--- NOTE | 2019-09-29 15:43 | NUR ---
SITTING UP IN BED RESTING QUIETLY. WEARING OXYGEN 2NC. DECLINES TO PUT ON BIPAP AT PRESENT. NO COUGH NOTED. DECREASED BREATH SOUNDS TO ALL LOBES NOTED. CALL LIGHT IN REACH
--- NOTE | 2019-09-29 15:44 | NUR ---
DR HAYDEN NOTIFIED ABOUT CO2 LEVELS. NO NEW ORDERS.
[2019-09-29 20:15] VITALS: BP 132/72
--- NOTE | 2019-09-29 20:30 | NUR ---
PATIENT RECEIVED SITTING UP IN BED WATCHING TV. ASSESSMENT & VITAL SIGNS DONE. NO C/O PAIN OR DISTRESS. BED LOW. ALARM ON. CALL LIGHT WITHIN REACH. WILL CONTINUE TO MONITOR.
--- NOTE | 2019-09-29 20:53 | NUR ---
PATIENT FSBS 175. PATIENT REFUSED 2 UNITS OF INSULIN. WILL RECHECK FSBS IN AM. CALL LIGHT WITHIN REACH. WILL CONTINUE TO MONITOR.
--- NOTE | 2019-09-30 00:30 | NUR ---
QUIET HOURS. PT LYING IN BED EYES CLOSED RESTING QUIETLY. RR EVEN AND UNLABORED. BIPAP IN USE. CL IN REACH
--- NOTE | 2019-09-30 01:43 | NUR ---
PATIENT USED CALL LIGHT FOR ASSIST. PATIENT WANTED THIS NURSE TO CHECK HIS OXYGEN LEVEL. O2 @ 89% ON BIPAP. BIPAP TAKEN OFF. 02 @ 3L SAT LEVEL INCREASED TO 99%. RESPIRATORY CALLED & TOLD OF THIS. RESPIRATORY TO COME & CHECK OUT BIPAP & WHY THE ALARM WAS ON. RETURNED TO PATIENT'S ROOM. 02 TURNED DOWN TO 2L. PATIENT 02 SAT STAYED AT 99%. CALL LIGHT WITHIN REACH. WILL CONTINUE TO MONITOR.
--- NOTE | 2019-09-30 02:00 | NUR ---
I have reviewed this patient and I concur with the Shift Assessment completed by the Licensed Practical Nurse today this shift.
--- NOTE | 2019-09-30 02:29 | NUR ---
PATIENT 02 2L NC. 02 SAT 99%. RESPIRATORY TO EVALUATE. WILL CONTINUE TO MONITOR 02 SATS. CALL LIGHT WITHIN REACH.
--- NOTE | 2019-09-30 04:37 | NUR ---
PATIENT 02 SAT 99% ON 2LNC. RESPIRATIONS 18 & EVEN. BED LOW. ALARM ON. CALL LIGHT WITHIN REACH. WILL CONTINUE TO MONITOR.
--- NOTE | 2019-09-30 05:47 | NUR ---
FSBS 88. PATIENT GIVEN ORANGE JUICE. CALL LIGHT WITHIN REACH. WILL CONTINUE TO MONITOR.
[2019-09-30 07:45] VITALS: BP 152/68
--- NOTE | 2019-09-30 19:00 | NUR ---
PT RESTING IN A RECLINER IN HIS ROOM. ALERT AND ORIENTED X 3. HE DENIES ACUTE PAIN OR DISCOMFORT AT THIS TIME. NO NEEDS VOICED. O2 IS ON @ 2LPM PER NC. NO SOB NOTED. BOWERS CATH IS PATENT AND DRAINING TO A GRAVITY BAG. PT IS HARD OF HEARING. CALL LIGHT AND BEDSIDE TABLE ARE WITHIN EASY REACH.
[2019-09-30 19:46] VITALS: BP 133/58
--- NOTE | 2019-09-30 22:10 | NUR ---
PT ASSISTED TO BED BY TELMA KELLY. BIPAP APPLIED.
--- NOTE | 2019-10-01 01:00 | NUR ---
RESTING IN BED WITH EYES CLOSED.
--- NOTE | 2019-10-01 02:11 | NUR ---
I have reviewed this patient and I concur with the Shift Assessment completed by the Licensed Practical Nurse today this shift.
--- NOTE | 2019-10-01 05:00 | NUR ---
RESTING IN BED WITH EYES CLOSED. NO DISTRESS NOTED.
--- NOTE | 2019-10-01 07:15 | NUR ---
GREETED PATIENT AND INTRODUCED MYSELF HIS NURSE. PATIENT IS CURRENTLY LAYING IN BED WITH BIPAP MACHINE STILL IN USE. RESPIRATIONS EVEN. NO S/S OF DISTRESS. DENIES ANY NEEDS AT THIS TIME. CALL LIGHT IN REACH.
[2019-10-01 07:45] VITALS: BP 150/58
--- NOTE | 2019-10-01 10:45 | NUR ---
PT. RESTING QUIETLY IN BED WATCHING TV. DENIES ANY NEEDS AT THIS TIME. CALL LIGHT IN REACH.
[2019-10-01 19:30] VITALS: BP 142/73
--- NOTE | 2019-10-01 19:44 | NUR ---
PT IS RESTING IN A RECLINER IN HIS ROOM. ALERT AND ORIENTED X 3. DENIES ACUTE PAIN OR DISCOMFORT AT THIS TIME. O2 IS ON @ 2LPM PER NC. NO SOB NOTED. BOWERS CATH IS PATENT AND DRAINING TO A GRAVITY BAG. CALL LIGHT AND BEDSIDE TABLE ARE WITHIN EASY REACH.
--- NOTE | 2019-10-01 22:27 | NUR ---
PT ASSISTED TO BED WITH MOD ASSIST. BIPAP APPLIED. NO FURTHER NEEDS VOICED.
--- NOTE | 2019-10-02 00:43 | NUR ---
RESTING QUIETLY IN BED WITH EYES CLOSED. RESPS ARE EVEN AND UNLABORED. NO ACUTE DISTRESS NOTED.
--- NOTE | 2019-10-02 01:31 | NUR ---
I have reviewed this patient and I concur with the Shift Assessment completed by the Licensed Practical Nurse today this shift.
--- NOTE | 2019-10-02 06:26 | NUR ---
PT RESTING IN BED WITH EYES CLOSED. BIPAP ON.
--- NOTE | 2019-10-02 07:00 | NUR ---
GREETED PATIENT AND INTRODUCED MYSELF HIS NURSE. PATIENT IS LAYING IN BED WATCHING TV AT THIS TIME. O2 AT 2L IN USE VIA NC. RESPIRATIONS EVEN. NO S/S OF DISTRESS. STATES THAT PAIN IS 3/10 IN RIB AREA. DENIES ANY SHARP CHEST PAIN. CALL LIGHT IN REACH.
[2019-10-02 07:30] VITALS: BP 168/68
--- NOTE | 2019-10-02 13:20 | NUR ---
PT. SITTING IN RECLINER RESTING QUIETLY. O2 AT 2L IN USE VIA NC. RESPIRATIONS EVEN. NO S/S OF DISTRESS. CALL LIGHT IN REACH. DENIES ANY NEEDS AT THIS TIME.
--- NOTE | 2019-10-02 17:14 | NUR ---
PT. SITTING IN RECLINER EATING DINNER. DENIES ANY NEEDS AT THIS TIME. CALL LIGHT IN REACH.
--- NOTE | 2019-10-02 19:16 | NUR ---
PT IS SITTING IN HIS RECLINER TALKING ON THE PHONE. NO DISTRESS NOTED.
[2019-10-02 20:58] VITALS: BP 144/75
--- NOTE | 2019-10-02 22:03 | NUR ---
PT ASSISTED TO BED WITH MOD ASSIST. BIPAP APPLIED.
--- NOTE | 2019-10-03 00:07 | NUR ---
I have reviewed this patient and I concur with the Shift Assessment completed by the Licensed Practical Nurse today this shift.
--- NOTE | 2019-10-03 04:46 | NUR ---
RESTING IN BED WITH EYES CLOSED.
[2019-10-03 07:06] LABS: CALC OSMOLALITY 285 mosm/kg (275-300); CALCIUM 8.9 mg/dL (8.5-10.1); CARBON DIOXIDE 38.8 mmol/L (21.0-32.0); CHLORIDE - SERUM 102 mmol/L (98-107); GLUCOSE 94 mg/dL (74-106); POTASSIUM - SERUM 3.6 mmol/L (3.5-5.1); SODIUM 142 mmol/L (136-145); UREA NITROGEN 22 mg/dL (7-18); eGFR NON AFRICAN AMERICAN 76 mL/min (90-120)
[2019-10-03 07:25] LABS: BASOPHILS 0 % (0-2); EOSINOPHILS 1.1 % (0-7); HEMATOCRIT 39.6 % (42.0-54.0); HEMOGLOBIN 11.8 g/dL (13.5-17.5); IMMATURE GRANULOCYTES 1.2 % (0-5); LYMPHOCYTES 16.3 % (15-50); MCH 30.2 pg (26.0-34.0); MCHC 29.8 g/dL (31.0-37.0); MCV 101.3 fL (80.0-100.0); MEAN PLATELET VOLUME 9.8 fL (7.4-10.4); MONOCYTES 10.6 % (2-11); NEUTROPHILS 70.8 % (40-80); PLATELET COUNT 170 10x3/uL (130-400); RBC 3.91 10x6/uL (4.20-6.10); RDW 16.9 % (11.5-14.5)
[2019-10-03 07:46] VITALS: BP 159/64
--- NOTE | 2019-10-03 09:40 | NUR ---
NUTRITION F/U PT WITH ~50% INTAKE BREAKFAST. STATES HE HAD ""SOME OTHER STUFF" TO EAT BEFORE BREAKFAST. GOOD INTAKE RECENT MEALS. BM RECORDED ON 10/03/19. WILL CONTINUE TO PROVIDE DIABETIC DIET, MONITOR PO INTAKE. RD FOLLOWING
--- NOTE | 2019-10-03 12:56 | NUR ---
SITTING UP IN RECLINER IN ROOM FINISHING LUNCH. DENIES INCREASED SOB. STILL WEARING O2 2L NC. HAS BIPAP IN ROOM. F/C DRAINING CLOUDY URINE. CALL LIGHT IN REACH
[2019-10-03 20:00] VITALS: BP 130/60
--- NOTE | 2019-10-03 22:58 | NUR ---
PATIENT RECEIVED SITTING UP IN RECLINER. ASSESSMENT & VITAL SIGNS DONE. NO C/O PAIN OR DISTRESS. CALL LIGHT WITHIN REACH. BOWERS PATENT WITH YELLOW COLOR URINE. WILL CONTINUE TO MONITOR.
--- NOTE | 2019-10-04 04:03 | NUR ---
I have reviewed this patient and I concur with the Shift Assessment completed by the Licensed Practical Nurse today this shift.
--- NOTE | 2019-10-04 04:10 | NUR ---
PATIENT EYES CLOSED. BIPAP ON. BED LOW. ALARM ON. CALL LIGHT WITHIN REACH. WILL CONTINUE TO MONITOR.
[2019-10-04 08:08] VITALS: BP 145/60
[2019-10-04 08:12] VITALS: BP 145/60
--- NOTE | 2019-10-04 09:58 | RHP ---
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 HISTORY OF PRESENT ILLNESS: The patient is an 84-year-old gentleman who was admitted to the rehab with a working diagnosis of critical illness myopathy. He has a past medical history of coronary artery disease, atrial fib, diabetes, COPD, hypothyroidism, history of colon, rectal, lung and skin cancer who has been in our inpatient rehab in the past. On 09/22/2019, the patient became anxious, lethargic and combative. He was refusing to wear his Trilogy and went into respiratory distress, had crackles and diminished breath sounds, bilateral lower extremity edema, his O2 was 91% on CPAP. A rapid response was called and he was transferred back to [facility]. Pulmonary was consulted. He was found to have wheezing, some paroxysmal nocturnal dyspnea and orthopnea. He was unable to do activities of daily living, increased nocturnal symptoms. Nebulizers seem to help along with elevating the head of his bed and working on diuresis. The patient had venous Dopplers, which were negative for DVT. He was placed on BiPAP. His O2 was titrated. He was kept on Xopenex, Atrovent, Brovana, budesonide and IV steroids and Daliresp, also mucolytic, antitussives, flutter valve. He was placed on DVT and GI precautions. Also, Lasix. His electrolytes were followed closely. He became somewhat better, but remained weak and deconditioned. He has had prolonged immobility, progressive generalized weakness, especially in his lower extremities affecting his exercise tolerance. He is very fatigued, has limited flexion and extension. He has proximal muscle strength, it is decreased. He is mod-to-max assist for uxk-aj-lgmct and ebq-ry-ecsfi. He has ambulated 250 feet, but desats to 88% on 3 liters of O2, would like to regain his prior level of functioning and return home. COMORBIDITIES: Include acute exacerbation of COPD, metabolic encephalopathy, chronic renal failure, critical illness myopathy, functional quadriplegia, hyperglycemia, atrial fib, osteoarthritis, history of aortic valve replacement. He has had a history of PCI and stent placement, history of skin cancer, gastroesophageal reflux disease, gout, anemia, debility, and electrolyte abnormalities. PAST MEDICAL HISTORY: Significant for diabetes; thyroid problems; history of coronary artery disease with stent placement; atrial fib; aortic valve replacement; COPD; colon, rectal lung, and skin cancer; chronic diarrhea alternating with constipation; arthritis. He has also had problems with benign prostatic hypertrophy, chronic lumbago and has a history of tobacco use. PAST SURGICAL HISTORY: Includes colon surgery. He has had kidney surgery. He has had aortic valve replacement, stent placement. ALLERGIES: MORPHINE. HE IS ALLERGIC TO CARBOPLATIN, SIMVASTATIN, LEVAQUIN AND BRILINTA. CURRENT MEDICATIONS: Include Zithromax, he is on 500 mg IV, he will get 3 more HISTORY AND PHYSICAL [id number] FORREST BROWN doses; he has been placed on Macrobid secondary to UA, was sensitive to this; Exira 10/325 one tab every 6 hours p.r.n.; Floranex 460 mg daily; Rocephin 1 gm every 24 hours; Eliquis 5 mg b.i.d.; Flomax 0.4 mg daily; Daliresp 250 mcg daily; prednisone 40 mg daily, he is on a tapering dose of this; potassium 20 mEq daily; furosemide 40 mg daily; Flonase nasal spray daily; ferrous sulfate 325 mg daily; metformin 500 mg with meals; Protonix 40 mg daily; Synthroid 15 mcg daily; he is on a low-resistant sliding scale of insulin; Pravachol 40 mg at bedtime; Mucinex D 1 tab b.i.d.; Colace 100 mg b.i.d.; allopurinol 200 mg b.i.d.; Xopenex 0.63 mg q.i.d.; Atrovent 0.5 mg b.i.d.; budesonide 0.5 mg b.i.d.; Brovana 15 mcg b.i.d.; he is on carvedilol 3.125 mg b.i.d. with meals; Zofran 4 mg every 4 hours p.r.n. and Tylenol 650 every 4 hours p.r.n. HABITS: Does have a distal history of tobacco use. FAMILY HISTORY: Noncontributory. SOCIAL HISTORY: The patient hopes to return back home and get back to his prior level of functioning. REVIEW OF SYSTEMS: GENERAL: Does complain of weakness and fatigue. HEENT: Denies cold, cough, or congestion. CARDIOVASCULAR: Denies any chest pain. LUNGS: Does complain of shortness of breath, especially with any type of activity. PHYSICAL EXAMINATION: VITAL SIGNS: Stable, afebrile. GENERAL: A somewhat obese gentleman in no acute distress, alert upon exam. HEENT: Normocephalic and atraumatic. Mucosa moist. NECK: Supple. No lymphadenopathy. LUNGS: Clear in upper lung gutierres, but decreased breath sounds in both bases. HEART: Irregular rate and rhythm. ABDOMEN: Soft, benign, and nondistended. Positive bowel sounds times 4. EXTREMITIES: No clubbing, cyanosis or edema. NEUROLOGIC: He does have noted proximal muscle weakness in his lower extremities. LABORATORY DATA: His white count is 10.5, H&H of 11 and 39. His platelet count is noted to be 176. His MCV is increased at 101.3. His sodium is 145, potassium 4.3, BUN and creatinine of 31 and 1.0 and blood sugar is noted to be 192. ASSESSMENT: This is an 84-year-old gentleman admitted to the rehab with a working diagnosis of critical illness myopathy complicated by exacerbation of chronic obstructive pulmonary disease. The patient has potential to make improvement. We instituted the following multidisciplinary therapies, including but not limited to physical, occupational, respiratory, speech, nutritional services, prosthetics and orthotics. Given his complex medical condition and risk for more complications, rehabilitation services cannot be provided at a low level of care such as skilled nurse facility. PLAN: 1. 1. Admit to [facility] for intensive inpatient therapy to include the following disciplines; HISTORY AND PHYSICAL [id number] FORREST BROWN A. Physical therapy to improve gait, all transfer skills and bed mobility to a modified independent level. B. Occupational therapy to work with ADLs. C. Case management to assist with discharge plan and planning options. D. Nutrition to assist with nutritional needs. E. Rehabilitation nursing to assist in monitoring the patient's underlying medical conditions and to assist with any type of bowel or bladder management. 2. The patient's current medication will be continued. 3. The patient will be placed on standard fall precautions. 4. We will go ahead and finish out his IV antibiotics for his pneumonia and also work on his urinary tract infection. 5. I will see again in the a.m. and discuss with care team tomorrow at noon. TRANSINT:[id number] Voice Confirmation ID: [id number] DOCUMENT ID: [id number] ERROL notes whether there has been none or any medical/functional change since admission: - No change since prescreen. ERROL attests patient continues to be appropriate for IRF: - Continues to be appropriate. ALICE HAYDEN MD at 0958 CC: [id number] DICTATION DATE: 09/27/19 1204 EDUCATOR SENIOR CLINICAL: 09/27/19 1247 ADM IN [place] [id number] [place] [id number]
--- NOTE | 2019-10-04 13:46 | NUR ---
F/C STABILIZED WITH NEW STAT LOCK. URINE IS CLOUDY AND DARK TODAY. ENCOURAGED PT TO SIP ON WATER. HIS BREATHING IS THE SAME. AUDIBLE BREATHSOUND ACROSS THE ROOM. OXYGEN 2LNC IN PLACE. NEEDS ASST TO STAND AND TRANSFER. BALANCE AND GAIT ARE NOT STABLE. 3+ PITTING EDEMA TO BLE NOTED. EDEMA CONFORMED TO POSITION OF PILLOW HIS LEGS WERE UNDER. AND SON VISITED.
--- NOTE | 2019-10-04 16:38 | NUR ---
SITTING IN RECLINER IN ROOM. WEARING 2LNC. F/C IS PATENT WITH DARK YELLOW URINE NOTED. PITTING EDEMA STILL PRESENT IN BLE.
[2019-10-04 20:00] VITALS: BP 144/66
--- NOTE | 2019-10-04 20:00 | NUR ---
PATIENT RECEIVED SITTING UP IN RECLINED WATCHING TV. ASSESSMENT & VITAL SIGNS DONE. NO C/O PAIN OR DISTRESS. BOWERS PATENT WITH ROBY COLOR URINE. CALL LIGHT WITHIN REACH. WILL CONTINUE TO MONITOR.
--- NOTE | 2019-10-05 02:33 | NUR ---
PATIENT EYES CLOSED. BIPAP CONTINUES. BED LOW. ALARM ON.CALL LIGHT WITHIN REACH. WILL CONTINUE TO MONITOR.
[2019-10-05 06:29] LABS: BASOPHILS 0.1 % (0-2); EOSINOPHILS 0.6 % (0-7); HEMATOCRIT 38.1 % (42.0-54.0); HEMOGLOBIN 11.3 g/dL (13.5-17.5); LYMPHOCYTES 13.4 % (15-50); MCHC 29.7 g/dL (31.0-37.0); MCV 101.1 fL (80.0-100.0); MEAN PLATELET VOLUME 10.4 fL (7.4-10.4); MONOCYTES 8.2 % (2-11); NEUTROPHILS 76.7 % (40-80); PLATELET COUNT 177 10x3/uL (130-400); RBC 3.77 10x6/uL (4.20-6.10); RDW 16.6 % (11.5-14.5); WBC 12.3 10x3/uL (4.8-10.8)
[2019-10-05 06:33] LABS: CALC OSMOLALITY 286 mosm/kg (275-300); CALCIUM 9.3 mg/dL (8.5-10.1); CHLORIDE - SERUM 101 mmol/L (98-107); CREATININE - SERUM 0.8 mg/dL (0.6-1.3); GLUCOSE 99 mg/dL (74-106); POTASSIUM - SERUM 3.7 mmol/L (3.5-5.1); SODIUM 142 mmol/L (136-145); UREA NITROGEN 25 mg/dL (7-18); eGFR NON AFRICAN AMERICAN > 90 mL/min (90-120)
[2019-10-05 06:39] LABS: CARBON DIOXIDE 41.3 mmol/L (21.0-32.0)
--- NOTE | 2019-10-05 06:39 | NUR ---
GALLO CALLED FROM LAB AND INFORMED CRITICAL LAB CO2 41.3 READ BACK AND CONFIRMED
--- NOTE | 2019-10-05 07:58 | NUR ---
ALERT AND ORIENTED. NO DISTRESS NOTED. CL IN REACH. RESP EVEN AND UNLABORED. WAITING FOR BREAKFAST.
[2019-10-05 08:04] VITALS: BP 115/49
[2019-10-05] MEDS ORDERED: HYDROCODON-ACE1 EA10 PO (08:37)
--- NOTE | 2019-10-05 10:00 | NUR ---
PATIENT DISCHARGING HOME TODAY WITH FAMILY. [facility] WILL PROVIDE THERAPY AT HOME. NO NEW DME NEEDED AT THIS TIME. PATIENT CHOICE FORM WITH COMPARE DATA FOR HOME HEALTH WAS REVIEWED WAND DISCUSSED WITH PATIENT. PATIENT VOICES UNDERSTANDING. [facility] FORM SIGNED, COPY GIVEN TO PATIENT AND FILED IN CHART. DISCHARGE INSTRUCTION FAXED TO PCP, HOME HEALTH AND REVIEWED WITH PATIENT AND SPOUSE. DR. WASSERMAN 10/11/19 @ 8:15, DR. ANTONY 12/14/18 @ 1:45.
--- NOTE | 2019-10-05 11:04 | NUR ---
DC INSTRUCTIONS GIVEN/ VERBALIZES UNDERSTANDING. PRESCRIPTION SENT HOME WITH PATIENT/FAMILY FOR HYDROCODONE. ZOFRAN ORDERED AT [facility] [address]. ASSISTED TO CAR IN PER STAFF FOR DC HOME.
== END 2019-10-05 11:06 | disposition home health service (06) | DRG 91 ==
LOC: D.REHAB 15:49
PROVIDERS: ADMIT Emergency Medicine; ATTEND Emergency Medicine
DX: G72.81 Critical illness myopathy (principal); G93.41 Metabolic encephalopathy; R53.2 Functional quadriplegia; J96.22 Acute and chronic respiratory failure with hypercapnia; J96.21 Acute and chronic respiratory failure with hypoxia; N17.9 Acute kidney failure, unspecified; I13.0 Hypertensive heart and chronic kidney disease with heart failure and stage 1 through stage 4 chronic kidney disease, or unspecified chronic kidney disease; I50.30 Unspecified diastolic (congestive) heart failure; J44.1 Chronic obstructive pulmonary disease with (acute) exacerbation; N39.0 Urinary tract infection, site not specified; J98.11 Atelectasis; R07.89 Other chest pain; N18.9 Chronic kidney disease, unspecified; D63.1 Anemia in chronic kidney disease; E11.22 Type 2 diabetes mellitus with diabetic chronic kidney disease; J44.9 Chronic obstructive pulmonary disease, unspecified; M19.90 Unspecified osteoarthritis, unspecified site; N40.0 Benign prostatic hyperplasia without lower urinary tract symptoms; I25.10 Atherosclerotic heart disease of native coronary artery without angina pectoris; I48.91 Unspecified atrial fibrillation; Z79.01 Long term (current) use of anticoagulants; Z95.2 Presence of prosthetic heart valve; Z95.5 Presence of coronary angioplasty implant and graft; Z85.118 Personal history of other malignant neoplasm of bronchus and lung; Z85.038 Personal history of other malignant neoplasm of large intestine; E11.65 Type 2 diabetes mellitus with hyperglycemia; K21.9 Gastro-esophageal reflux disease without esophagitis; R53.81 Other malaise

== ENCOUNTER 2019-10-11 08:20 | Inpatient (IN) | payer MEDICARE, OTHER ==
[~2019-10-11] VITALS: Ht 170.2 cm; Wt 82.1 kg
[2019-10-11 08:00] VITALS: BP 138/62
[~2019-10-11 08:20] MED LIST changes: +ELIQUIS2.5 MG PO; -ELIQUIS5 MG PO; +HYDROCODON-ACE1 EA10 PO
[2019-10-11 09:08] LABS: BASOPHILS 0.1 % (0-2); EOSINOPHILS 1.4 % (0-7); HEMATOCRIT 40.5 % (42.0-54.0); HEMOGLOBIN 12.2 g/dL (13.5-17.5); IMMATURE GRANULOCYTES 0.4 % (0-5); LYMPHOCYTES 8.1 % (15-50); MCH 30.4 pg (26.0-34.0); MCHC 30.1 g/dL (31.0-37.0); MEAN PLATELET VOLUME 9.4 fL (7.4-10.4); MONOCYTES 7.6 % (2-11); NEUTROPHILS 82.4 % (40-80); RBC 4.01 10x6/uL (4.20-6.10); RDW 16.9 % (11.5-14.5); WBC 9.7 10x3/uL (4.8-10.8)
[2019-10-11 09:09] LABS: PLATELET COUNT 119 10x3/uL (130-400)
[2019-10-11 09:16] LABS: INR 1.2 (0.85-1.17); PROTIME 14.7 SECONDS (11.6-15.0)
[2019-10-11 09:18] VITALS: BP 133/68
[2019-10-11 09:21] LABS: CALC OSMOLALITY 283 mosm/kg (275-300); CALCIUM 9.2 mg/dL (8.5-10.1); CARBON DIOXIDE 37.3 mmol/L (21.0-32.0); CHLORIDE - SERUM 101 mmol/L (98-107); CREATININE - SERUM 1.2 mg/dL (0.6-1.3); POTASSIUM - SERUM 4.4 mmol/L (3.5-5.1); SODIUM 140 mmol/L (136-145); UREA NITROGEN 19 mg/dL (7-18); eGFR NON AFRICAN AMERICAN 61 mL/min (90-120)
[2019-10-11 09:22] LABS: GLUCOSE 159 mg/dL (74-106)
[2019-10-11 09:37] LABS: ALKALINE PHOSPHATASE 110 U/L (46-116); ALT (SGPT) 34 U/L (10-68); BILIRUBIN - TOTAL 0.35 mg/dL (0.2-1.3); CREATINE KINASE 32 UL (21-232); PRO BNP 335 pg/mL (0-450); PROTEIN - SERUM 6.4 g/dL (6.4-8.2); TROPONIN-I 0.023 ng/mL (0.000-0.060)
[2019-10-11] MEDS ORDERED: LASIX40 MG PO (10:35)
[2019-10-11 12:00] VITALS: BP 138/62
[2019-10-11 13:30] VITALS: BP 138/62; BMI 28.5
[2019-10-11 16:00] VITALS: BP 156/76
--- NOTE | 2019-10-11 16:14 | NUR ---
PATIENT ARRIVED TO FLOOR FROM ER. FAMILY AT BEDSIDE AT 1030.
--- NOTE | 2019-10-11 16:14 | NUR ---
PATIENT IS DOING WELL, HE IS RESTING IN BED. REQUEST TO HAVE THE SCD'S REMOVED FOR A SHORT TIME. HE IS SITTING UP IN BED, AND SNACKING.
[2019-10-11 22:12] VITALS: BP 139/53
[2019-10-12 00:15] VITALS: BP 143/61
--- NOTE | 2019-10-12 04:21 | NUR ---
I have reviewed this patient and I concur with the Shift Assessment completed by the Licensed Practical Nurse today this shift.
[2019-10-12 04:30] VITALS: BP 148/72
[2019-10-12 06:44] LABS: ALBUMIN 2.8 g/dL (3.4-5.0); ANION GAP 10.4 mmol/L (8-16); BILIRUBIN - TOTAL 0.36 mg/dL (0.2-1.3); CARBON DIOXIDE 36.3 mmol/L (21.0-32.0); CREATININE - SERUM 1.1 mg/dL (0.6-1.3); POTASSIUM - SERUM 4.7 mmol/L (3.5-5.1); PROTEIN - SERUM 6.8 g/dL (6.4-8.2)
[2019-10-12 06:50] LABS: HEMATOCRIT 37.5 % (42.0-54.0); HEMOGLOBIN 11.5 g/dL (13.5-17.5); MCH 30.7 pg (26.0-34.0); MCHC 30.7 g/dL (31.0-37.0); MCV 100.3 fL (80.0-100.0); MEAN PLATELET VOLUME 11.4 fL (7.4-10.4); RBC 3.74 10x6/uL (4.20-6.10); RDW 16.7 % (11.5-14.5); WBC 9.2 10x3/uL (4.8-10.8)
[2019-10-12 06:51] LABS: PLATELET COUNT 155 10x3/uL (130-400)
--- NOTE | 2019-10-12 07:30 | NUR ---
RECIEVED A/A/OX4. DENIES ANY PAIN OR DISCOMFORT AND NO REQUESTS VOICED. ASSESSMENT COMPLETED AND WILL CONTINUE POC. 02 ON PER N/C AT 2 L/M WITH NO RESP DISTRESS NOTED.
--- NOTE | 2019-10-12 09:34 | NUR ---
IV TO RIGHT WRIST INFILTRATED, REMOVED WITHOUT DIFFICULTY AND TIP INTACT. ATTEMPTS X 2 BY NURSE TO RESTART AND UNABLE TO THREAD AFTER FLASHBACK. VASCULAR NURSE NOTIFIED AND TRIED UNSUCCESSFULLY FOR PERIPHERAL IV. FELICIANO TOSCANO CONTACTED AND ORDER RECEIVED FOR MIDLINE. VASCULAR NURSE NOTIFIED.
[2019-10-12 09:36] VITALS: BP 155/69
--- NOTE | 2019-10-12 11:00 | NUR ---
VASCULAR NURSE WAS ABLE TO GET PERIPHERAL IV STARTED IN RIGHT FOREARM WITH 22 GAUGE.
[2019-10-12 11:06] LABS: LYMPHOCYTES 13 % (15-50); MONOCYTES 4 % (2-11); NEUTROPHILS 78 % (40-80); PLATELET ESTIMATE NORMAL
--- NOTE | 2019-10-12 12:54 | NUR ---
IV INFILTRATED. CONTACTED FELICIANO TOSCANO APRN AND ORDER RECEIVED TO CHANGE ROCEPHIN TO IM.
[2019-10-12 13:18] VITALS: Ht 170.2 cm; Wt 82.1 kg
[2019-10-12 14:47] VITALS: BP 154/745
--- NOTE | 2019-10-12 17:34 | NUR ---
UP IN CHAIR FOR DINNER. RESP UL ON . CALL LIGHT IN REACH.
--- NOTE | 2019-10-12 18:27 | NUR ---
I have reviewed this patient and I concur with the Shift Assessment completed by the Licensed Practical Nurse today this shift.
--- NOTE | 2019-10-12 19:30 | NUR ---
PT RESTING IN BED ALERT AND ORIENTED X4. RR EVEN AND UNLABORED. PT COMPLAINS OF NAUSEA AT THIS TIME. PRN ZOFRAN GIVEN. NO S/S OF DISTRESS. PT DENIES ANY PAIN OR FURTHER NEEDS. BED LOW CALL LIGHT WITHIN REACH. WILL CONTINUE TO MONITOR.
[2019-10-13 06:43] LABS: BASOPHILS 0 % (0-2); EOSINOPHILS 0 % (0-7); HEMATOCRIT 42.9 % (42.0-54.0); HEMOGLOBIN 12.6 g/dL (13.5-17.5); IMMATURE GRANULOCYTES 0.3 % (0-5); LYMPHOCYTES 2.8 % (15-50); MCH 30.2 pg (26.0-34.0); MCHC 29.4 g/dL (31.0-37.0); MEAN PLATELET VOLUME 10.3 fL (7.4-10.4); MONOCYTES 2.1 % (2-11); NEUTROPHILS 94.8 % (40-80); PLATELET COUNT 140 10x3/uL (130-400); RBC 4.17 10x6/uL (4.20-6.10); RDW 16.6 % (11.5-14.5)
[2019-10-13 07:14] LABS: ALBUMIN 3.3 g/dL (3.4-5.0); ANION GAP 8.3 mmol/L (8-16); BILIRUBIN - TOTAL 0.3 mg/dL (0.2-1.3); CALCIUM 9.4 mg/dL (8.5-10.1); CARBON DIOXIDE 38.9 mmol/L (21.0-32.0); CREATININE - SERUM 1.1 mg/dL (0.6-1.3); POTASSIUM - SERUM 4.2 mmol/L (3.5-5.1); PROTEIN - SERUM 6.7 g/dL (6.4-8.2)
[2019-10-13 07:23] LABS: MCV 102.9 fL (80.0-100.0); WBC 15.6 10x3/uL (4.8-10.8)
[2019-10-13 08:00] VITALS: BP 159/66
[2019-10-13 12:00] VITALS: BP 141/64
[2019-10-13 17:49] VITALS: BP 137/65
--- NOTE | 2019-10-13 21:15 | NUR ---
EVENING ROUNDS COMPLETED. PT ALERT, BUT APPEARS LETHARGIC. BIPAP ON, FAMILY @BEDSIDE. VSS. WITH MINIMAL RT DISTRESS. PT C/O MILD ABD PAIN BUT STATES HE FEELS BETTER ON WHEN POSITION IS CHANGED. PT DENIES CONSTIPATION, ALTHOUGH STATES HE HAS NOT BEEN PASSING GAS. INSULIN NOT GIVEN PER SLIDING SCALE. MEDS GIVEN WITH APPLE SAUCE. PT DENIES ANY FURTHER NEEDS AT THIS TIME. WILL CTM.
--- NOTE | 2019-10-13 22:10 | NUR ---
PT HAS BEEN FOUND TAKING OFF HIS BIPAP MACHINE ON SEVERAL OCCASIONS, ON THIS TIME I NOTIFIED PT THAT HE HAS TO KEEP HIS BIPAP MASK ON DUE TO HIS LOW CO2. HE STATES "I JUST NEEDED A DRINK." I GAVE PT A DRINK OF DIET COKE. PT VOICED THANKS. BIPAP PLACED ON PT. CL WITHIN REACH, BED IN LOW, SR UP X2.
--- NOTE | 2019-10-14 00:56 | NUR ---
NURSE RESPONDED TO FALL AND BIPAP ALARM. NURSE FOUND PT ON THE FLOOR. BED ALARM WAS ON AT THIS TIME. PT WAS UNCONCIOUS WHEN WE FOUND HIM ON THE FLOOR. DEVORAH CANNON AND PT'S NURSE HELPED PT BACK IN BED, HE WAS ABLE TO TELL US HE DID NOT HURT OR BREAK ANYTHING WHILE WE PICKED HIM OFF THE FLOOR. ASSISTANT PRESS OPERATOR AND CHARGE NURSE ARRIVED. PT WAS SINUS RYTHM 69 AT THIS TIME. GRADUALLY PT BECAME UNRESPONSIVE ON RETURNING TO BED. CODE BLUE INITIATED WITH HIGH QUALITY CPR. PT FAMILY WAS CALLED BY PT'S NURSE, AND THE COURSE OF THE EVENT WAS EXPLAINED TO PT'S FAMILY MEMBER. PT FAMILY STATES THEY LIVE [place] THE WAY [place] [facility] TO BE A WHILE BEFORE THEY GET TO [facility]. PT'S NURSE ASKED FAMILY IF THEY ARE OKAY FOR PT TO BE INTUBATED IF NEED BE. PT'S AND DAUGHTER STATES, "DO WHATEVER TO KEEP HIM ALIVE PLEASE." THEY AGREED THAT PT CAN BE INTUBATED IF NEED BE. ALL ATTEMPT TO RECUSCITATE WAS UNCESSFULL. PT WAS PRONOUNCED BY MD TESHA. FAMILY WAS NOTIFIED OF ALL THAT HAD HAPPENED ON ARRIVAL. ALTHOUGH ONE OF THE PT'S SON APPEARS REALLY UPSET AND STATED "HEAD WILL ROLL." ASSISTANT PRESS OPERATOR, OLEGARIO HA AND AND CHARGE NURSE TRIED TO CALM AND SYMPATHIZE WITH FAMILY MEMBERS. FAMILY MEMBERS ALLOWED TO VISIT WITH PT.
--- NOTE | 2019-10-14 01:00 | NUR ---
POST MORTEM CARE IN PROGRESS. [facility] NOTIFIED PER FAMILY'S REQUEST.
--- NOTE | 2019-10-14 02:25 | NUR ---
PT TRANSFERED TO [facility]. HOME CPAP SENT TO THE ER REGISTRATION AREA.
--- NOTE | 2019-10-14 10:11 | MORECARE ---
CASE MANAGEMENT DISCHARGE SUMMARY PATIENT: FORREST BROWN UNIT: [id number] ADM DATE: 10/11/19 AGE: 84 : 36 SEX: M ROOM/BED: D.2135 AUTHOR: VIRA STORY PHYSICIAN: REFERRING PHYSICIAN: JING NAVARRETE MD DATE OF SERVICE: 10/14/19 Discharge Plan Patient Name: FORREST [facility]OWN [facility] [facility] 1935 Planned Disposition: Home with Home Health Anticipated Discharge Date: 10/14/19 Discharge Date: 10/14/2019 Expected LOS: 3 Initial Reviewer: [email or web address] Initial Review Date: 10/13/2019 Generated: 10/14/19 11:10 am DCPIA - Discharge Planning Initial Assessment Updated by [email or web address]: Anselmo Jensen on 10/14/19 10:09 am * Is the patient Alert and Oriented? Yes * How many steps to enter\exit or inside your home? NONE * PCP DR. WASSERMAN * Pharmacy [facility] [address] * Preadmission Environment Home with Family * ADLs Independent * Equipment Cane Oxygen Walker * Other Equipment HOME AND PORTABLE OXYGEN [facility] - PROVIDER * List name and contact numbers for known caregivers / representatives who currently or will assist patient after discharge: CLARA BROWN, SPOUSE, * Verbal permission to speak to the caregivers and representatives has been obtained from the patient. N/A * Community resources currently utilized Home Health * Please name any agencies selected above. [facility] * Additional services required to return to the preadmission environment? No * Can the patient safely return to the preadmission environment? Yes * Has this patient been hospitalized within the prior 30 days at any hospital? No Patient Name: FORREST BROWN Page [phone] at 1011 All edits/amendments must be made on the electronic document DICTATION DATE: 10/14/19 1010 TRAVEL CONSULTANT: MARISSA 10/14/19 1010 RPT#: [id number] DC DATE:10/14/19 STATUS: DIS IN [facility] [address] [place] [address] END OF REPORT
--- NOTE | 2019-10-14 10:18 | MORECARE ---
CASE MANAGEMENT DISCHARGE SUMMARY PATIENT: FORREST BROWN UNIT: [id number] ADM DATE: 10/11/19 AGE: 84 : 37 SEX: M ROOM/BED: D.2135 AUTHOR: EJZ,DOC PHYSICIAN: REFERRING PHYSICIAN: JING NAVARRETE MD DATE OF SERVICE: 10/14/19 Discharge Plan Patient Name: FORREST BROWN Facility: [facility]:[place] : 1935 Planned Disposition: Home with Home Health Anticipated Discharge Date: 10/14/19 Discharge Date: 10/14/2019 Expected LOS: 3 Initial Reviewer: [email or web address] Initial Review Date: 10/13/2019 Generated: 10/14/19 11:17 am Comments DCP- Discharge Planning Updated by [email or web address]: Anselmo Jensen on 10/14/19 9:[address] Patient Name: FORREST BROWN Admission Status: Elective Accout number: [id number] Admission Date: 10-11-2019 : 1935 Admission Diagnosis: Attending: JING MARTIN Current LOS: 3 Anticipated DC Date: 10-14-2019 Planned Disposition: Home with Home Health Primary Insurance: MEDICARE A & B PLANNED EXTERNAL PROVIDER: [facility] LATE ENTRY FROM 10-13-19. 1115, TB Discharge Planning Comments: CM MET WITH PT IN ROOM TO DISCUSS DISCHARGE PLANNING AND NEEDS. PT REPORTS LIVING AT HOME INDEPENDENTLY WITH SPOUSE. PT [facility] WITH [facility]. CM DISCUSSED AVAILABILITY OF HOME HEALTH, REHAB SERVICES AND MEDICAL EQUIPMENT. PT DENIES DISCHARGE NEEDS OTHER THAN HOME HEALTH RESUMPTION, HE IS NOT SURE IF HE WILL CONTINUE WITH TRILOGY OR IF THE DOCTOR WILL ORDER A BIPAP FOR HIM, REPORTS HIS PICK HIM UP FOR DISCHARGE HOME. CHOICE SIGNED FOR [facility] AND [facility] FOR MEDICAL EQUIPMENT. CM ARRIVED TO WORK 10-14-19, WAS ADVISED THAT PT HAS . [employer]: Anselmo Jensen DCPIA - Discharge Planning Initial Assessment Updated by [email or web address]: Anselmo Jensen on 10/14/19 10:09 am * Is the patient Alert and Oriented? Yes * How many steps to enter\exit or inside your home? NONE * PCP DR. WASSERMAN * Pharmacy [facility] [address] * Preadmission Environment Home with Family * ADLs Independent * Equipment Cane Oxygen Walker * Other Equipment HOME AND PORTABLE OXYGEN TRILOGY [place] - PROVIDER * List name and contact numbers for known caregivers / representatives who currently or will assist patient after discharge: CLARA BROWN, SPOUSE, * Verbal permission to speak to the caregivers and representatives has been obtained from the patient. N/A * Community resources currently utilized Home Health * Please name any agencies selected above. [facility] * Additional services required to return to the preadmission environment? No * Can the patient safely return to the preadmission environment? Yes * Has this patient been hospitalized within the prior 30 days at any hospital? No Coverage Notice Reviewer: [id number] Shala Jensen Notice Issued Date-Time: 10/14/2019 11:55 Notice Type: Patient Choice Letter Notice Delivered To: Patient Relationship to Patient: Unix Engineer Name: Delivery Method: HAND - Hand Delivered Shea Days: Prior Verbal Notification: Recipient Understood Notice: Yes Recipient Signature: Yes Med Rec Note Co-signed by Attending: Coverage Notice Comment: APOLONIA ANDRADE IV Last DP export: 10/14/19 9:11 Patient Name: FORREST BROWN Page [id number] at 1018 All edits/amendments must be made on the electronic document DICTATION DATE: 10/14/19 1017 CERTIFIED ADAPTIVE PHYSICAL EDUCATOR: MARISSA 10/14/19 1017 RPT#: [id number] DC DATE:10/14/19 STATUS: DIS IN [facility] [address] [place] [address] END OF REPORT
== END 2019-10-14 03:56 | DRG 189 ==
LOC: D.ER 08:20 → D.M2 09:20
PROVIDERS: Emergency Medicine; Family Medicine; ADMIT Family Medicine; ATTEND Family Medicine
PROC: 5A09457 Assistance with Respiratory Ventilation, 24-96 Consecutive Hours, Continuous Positive Airway Pressure (ICD-10-PCS; principal; 2019-10-11)
PROC: 0BH17EZ Insertion of Endotracheal Airway into Trachea, Via Natural or Artificial Opening (ICD-10-PCS; 2019-10-14)
PROC: 0JHP3XZ Insertion of Tunneled Vascular Access Device into Left Lower Leg Subcutaneous Tissue and Fascia, Percutaneous Approach (ICD-10-PCS; 2019-10-14)
PROC: 06HY33Z Insertion of Infusion Device into Lower Vein, Percutaneous Approach (ICD-10-PCS; 2019-10-14)
DX: J96.22 Acute and chronic respiratory failure with hypercapnia (principal); I50.33 Acute on chronic diastolic (congestive) heart failure; J44.1 Chronic obstructive pulmonary disease with (acute) exacerbation; I13.0 Hypertensive heart and chronic kidney disease with heart failure and stage 1 through stage 4 chronic kidney disease, or unspecified chronic kidney disease; J98.11 Atelectasis; J44.0 Chronic obstructive pulmonary disease with (acute) lower respiratory infection; J96.21 Acute and chronic respiratory failure with hypoxia; N18.9 Chronic kidney disease, unspecified; E11.22 Type 2 diabetes mellitus with diabetic chronic kidney disease; E11.65 Type 2 diabetes mellitus with hyperglycemia; E03.9 Hypothyroidism, unspecified; K21.9 Gastro-esophageal reflux disease without esophagitis; N40.0 Benign prostatic hyperplasia without lower urinary tract symptoms; D63.1 Anemia in chronic kidney disease; J20.9 Acute bronchitis, unspecified; I48.91 Unspecified atrial fibrillation; I25.10 Atherosclerotic heart disease of native coronary artery without angina pectoris; Z95.2 Presence of prosthetic heart valve